=== PATIENT | male | born 1965 | race Caucasian/White ===

== ENCOUNTER → 2020-01-20 12:49 | Outpatient (CLI) | payer OTHER, SELFPAY ==
--- NOTE | ~2020-01-20 | XR_ITS ---
EXAMINATION: XR chest 2V EXAM DATE: 01/20/2020 13:19 INDICATION: Mid chest pain. TECHNIQUE: Frontal and lateral projections of the chest obtained and reviewed. Comparison is made to prior examination from 05/03/2015. FINDINGS: The lungs are clear. There are no pleural effusions. The cardiomediastinal silhouette is within normal limits. There is no pneumothorax suspected. The bones and soft tissues are unremarkab le. IMPRESSION: No acute cardiopulmonary findings. Reviewed, dictated and finalized at location A. CISE SCIENCE INSTRUCTOR
== END ==
PROVIDERS: PCP Family Medicine; Visit Provider Family Medicine
DX: R07.9 Chest pain, unspecified (principal)
CPT/HCPCS: 71046

== ENCOUNTER 2020-01-26 17:58 | Emergency (ER) | payer OTHER, SELFPAY ==
--- NOTE | ~2020-01-26 | XR_ITS ---
EXAMINATION: XR chest 2V DATE: 01/26/2020 18:31 INDICATION: Left-sided chest pain TECHNIQUE: PA and lateral views of the chest were obtained. COMPARISON: Chest radiograph dated 01/20/2020 FINDINGS: The lungs remain clear with no focal airspace opacities, pulmonary edema, pleural effusion or pneumot horax. The cardiomediastinal silhouette is normal with left paracardial fat pad. Mild thoracic spondy losis. IMPRESSION: 1. No acute cardiopulmonary disease. Reviewed, dictated and finalized at location A. RCEMENT MANAGER
[2020-01-26 18:04] VITALS: BP 174/100; PULSE 91; RESP 18; TEMP 37.6; O2SAT 95
--- NOTE | 2020-01-26 18:08 | ECG_ITS ---
Measurements Intervals [place] Rate: 87 P: 41 MO: 159 QRS: 12 QRSD: 106 T: 34 QT: 358 QTc: 431 Interpretive Statements SINUS RHYTHM MINIMAL Q WAVES- LATERAL LEADS BASELINE ARTIFACT- I, II, III, AVL, AVF BORDERLINE ECG Electronically Signed On 01-27-2020 7:01:13 WATER RESOURCE AGENT by Jorge Yang D.O.
[2020-01-26 18:09] VITALS: BP 174/100; PULSE 89; RESP 12; O2SAT 95
[2020-01-26 18:17] LABS: Basophils Absolute Auto 0.1 K/mm3 (0.0-0.1); Basophils Percent Auto 0.7 % (0.2-1.2); Eosinophils Absolute Auto 0.3 K/mm3 (0-0.3); Eosinophils Percent Auto 2.9 % (0-4.4); Hemoglobin 14.6 g/dL (14.0-18.0); Immature Granulocyte Absolute 0.02 K/mm3 (0.00-0.031); Immature Granulocyte Percent A 0.2 % (0-0.5); Lymphocytes Percent Auto 40.3 % (18.3-44.2); Mean Corpuscular Hemoglobin 30.4 pg (26-34); Mean Corpuscular Volume 89.6 fl (80-100); Mean Platelet Volume 10.5 fl (7.4-10.4); Monocytes Absolute Auto 0.8 K/mm3 (0.1-0.6); Monocytes Percent Auto 8.4 % (2.6-8.5); Neutrophils Absolute Auto 4.4 K/mm3 (1.3-6.7); Neutrophils Percent Auto 47.5 % (45.5-73.1); Platelet Count Result 222 k/mm3 (150-375); Red Cell Distribution Width 12.6 % (11.5-14.5); White Blood Count 9.2 K/mm3 (4.5-10.0)
[2020-01-26 18:29] LABS: Blood Urea Nitrogen 18 mg/dL (9-20); Calcium 9.5 mg/dL (8.4-10.2); Carbon Dioxide 25 mmol/L (22-30); Chloride 103 mmol/L (98-107); Estimated Glomerular Filt Rate > 60; Glucose 126 mg/dL (75-110); Potassium 4.2 mmol/L (3.4-5.0); Sodium 140 mmol/L (137-145)
[2020-01-26 18:31] LABS: Partial Thromboplastin Time 26.6 SECONDS (22.3-36.8); Prothrombin Time 12.8 Seconds (11.1-14.7)
[2020-01-26] MEDS: ASPIRIN 81 MG CHEWABLE TABLET 324 MG PO (18:32)
[2020-01-26 18:41] LABS: Troponin I < 0.012 ng/mL (0.000-0.034)
--- NOTE | 2020-01-26 19:14 | ED.CHESTPAIN ---
HPI - Chest Pain General Chief Complaint: Chest Pain <NOLAN Ragland Last Filed: 01/26/20 20:31> Stated Complaint: chest pain <NOLAN Ragland Last Filed: 01/26/20 20:31> Time Seen by Provider: 01/26/20 18:41 <NOLAN Ragland Last Filed: 01/26/20 20:31> Source: patient <NOLAN Ragland Last Filed: 01/26/20 20:31> Mode of arrival: ambulatory <NOLAN Ragland Last Filed: 01/26/20 20:31> Limitations: no limitations <NOLAN Ragland Last Filed: 01/26/20 20:31> History of Present Illness HPI narrative: Patient is a 54-year-old male who presents to emergency department for evaluation of chest pain localized to the left chest that today was radiating across the chest lasted 1/2-hour and improved patient has been having these pains for over 2 weeks now that the pain typically is present throughout the day patient saw his primary care for this and is scheduled to see cardiology. Patient denies any fever chills nausea vomiting and on arrival to emergency department notes 2 out of 10 pain was given 4 baby aspirin on arrival which she believes may have helped patient notes that nothing makes the pain better or worse and sometimes the pain increases and decreases for unknown reasons. Patient on arrival again in the room in no distress <Darius Pierson PA-C - Last Filed: 01/26/20 20:31> Related Data Allergies/Adverse Reactions: Allergies Allergy/AdvReac Type Severity Reaction Status Date / Time tetracycline Allergy Intermediate HIVES Verified 01/14/18 16:13 <NOLAN Ragland Last Filed: 01/26/20 20:31> Review of Systems Review of Systems: All systems reviewed & are unremarkable except as noted in HPI and below <NOLAN Ragland Last Filed: 01/26/20 20:31> [facility] Past Medical History Medical History: Medical History (Updated 01/27/20 @ 00:00 by Joan Brady) Obesity <NOLAN Ragland Last Filed: 01/26/20 20:31> Surgical History Surgical History: Surgical History (Updated 01/26/20 @ 19:17 by Darius Pierson PA-C) H/O removal of cyst <Darius Pierson PA-C - Last Filed: 01/26/20 20:31> Exam Narrative: Exam Narrative: GENERAL: Well-appearing, obese, and in no acute distress. HEAD: Normocephalic, atraumatic. EYES: PERRLA and EOMI. ENT: Nares clear, no rhinorrhea or epistaxis. Mucous membranes moist. Oropharynx without tonsillar hypertrophy exudate or other lesions. NECK: Supple. No adenopathy or masses. CHEST: Clear to auscultation. No respiratory distress. No wheezes rales or rhonchi HEART: Regular rate and rhythm. No murmur heard. Normal peripheral pulses. ABDOMEN: Soft, nontender, nondistended EXTREMITIES: Normal range of motion. No edema. SKIN: Warm, dry, no rash. NEURO: No focal deficits. Alert and oriented x3. Cranial nerves II through XII grossly intact PSYCH: Normal mood and affect. <Darius Pierson PA-C - Last Filed: 01/26/20 20:31> Course Course Emergency Course: Patient in the room in no distress aware of case findings treatment plan and diagnosis agreeing to follow-up as directed or to return if symptoms worsen or concerns <Darius Pierson PA-C - Last Filed: 01/26/20 20:31> Vital Signs Vital signs: Vital Signs Temperature 37.6 C H 01/26/20 18:04 Pulse Rate 91 01/26/20 18:04 Respiratory Rate 18 01/26/20 18:04 Blood Pressure 174/100 H 01/26/20 18:04 Pulse Oximetry 95 01/26/20 18:04 Temperature 37.6 C H 01/26/20 18:04 Pulse Rate 77 01/26/20 23:30 Respiratory Rate 20 01/26/20 23:30 Blood Pressure 120/75 01/26/20 23:30 Pulse Oximetry 94 01/26/20 23:30 <Darius Pierson PA-C - Last Filed: 01/26/20 20:31> Vital Signs Temperature 37.6 C H 01/26/20 18:04 Pulse Rate 91 01/26/20 18:04 Respiratory Rate 18 01/26/20 18:04 Blood Pressure 174/100 H 01/26/20 18:04 Pulse Oximetry 95 01/26/20 1
[2020-01-26 19:28] VITALS: BP 143/81; PULSE 77; RESP 15; O2SAT 96
[2020-01-26] MEDS: NITROGLYCERIN OINTMENT 1 INCH DOSE 0.5 INCH TRANSDERM (19:28)
[2020-01-26 20:00] VITALS: BP 147/86; PULSE 88; RESP 20; O2SAT 94
[2020-01-26 21:41] VITALS: BP 153/95; PULSE 87; RESP 22; O2SAT 96
[2020-01-26 21:49] LABS: Troponin I < 0.012 ng/mL (0.000-0.034)
[2020-01-26] MEDS: ACETAMINOPHEN 500 MG TABLET 1000 MG PO (23:29)
[2020-01-26 23:30] VITALS: BP 120/75; PULSE 77; RESP 20; O2SAT 94
== END 2020-01-26 23:30 | disposition home or self-care (01) ==
PROVIDERS: Emergency Medicine; Emergency Provider Emergency Medicine; PCP Family Medicine
DX: R07.9 Chest pain, unspecified (principal)
CPT/HCPCS: 36415; 71046; 80048; 84484; 85025; 85610; 85730; 93005; 99284; A9270

== ENCOUNTER 2020-10-08 02:01 | Outpatient (CLI) | payer OTHER, SELFPAY ==
[2020-10-08 18:04] LABS: SARS-CoV-2 RNA PCR Negative
== END 2020-10-08 02:02 | disposition home or self-care (01) ==
LOC: ANHCOVIDDT 02:01
PROVIDERS: PCP Family Medicine; Visit Provider Internal Medicine Critical Care Medicine
DX: Z01.818 Encounter for other preprocedural examination (principal); Z20.828 Contact with and (suspected) exposure to other viral communicable diseases
CPT/HCPCS: 87635; C9803; U0003

== ENCOUNTER 2020-12-27 10:10 | Outpatient (CLI) | payer OTHER, SELFPAY ==
--- NOTE | 2021-01-22 11:02 | WPDHOMESLEEP ---
Sleep Study - Home Unattended Date of Study: 12/27/20 Ordering Provider: Ellen Jasmine, CHIEF ACCOUNTANT; primary care is Dr Tamayo Interpreting Provider: Candice Mcdowell MD Home Sleep Study Type: Apnea Link Air Height: 1.85 m Weight: 133.81 kg Body Mass Index: 38.9 Neck Circumference (inches): 17 Drifting: [address] Petersen suspects sleep apnea, lower extremity edema, poor sleep basic sleep study on 05/18/2010 showed mild CRISTINA with AHI 5.3, snoring and periodic limb movements, and recommended a return to the sleep lab for CPAP. Sleep History Rick Nieto is a 55 year old man with frequent snoring this frequently loud enough that others complain about it. He occasionally awakens at night with heartburn, belching or coughing. He frequently awakens from sleep feeling short of breath. There is a family history of sleep disorders in his father and brother. The patient had a sleep study 10 years ago that did not show sleep apnea. He frequently has trouble sleeping with a cold. He frequently wakes up gasping for breath at night and frequently has breathing problems at night observed by others. He occasionally sweats excessively at night. He frequently notices his heart pounding or beating irregularly at night. He constantly falls asleep during the day, frequently involuntarily rarely while driving. He rarely falls asleep during physical effort. He does not have loss of muscle tone with strong emotion. 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 He occasionally feels paralyzed on waking or falling asleep. He occasionally has vivid dreamlike scenes upon awakening or falling asleep. He occasionally is afraid to go to sleep. He rarely has nightmares. He occasionally remembers his dreams. He constantly has racing thoughts. He occasionally feels sad or depressed. He constantly has anxiety about things, Rajeev has muscular tension. He frequently notices parts of his body jerking. He constantly kicks at night. He occasionally has crawling and aching feelings in his legs and rarely has leg pain during the night. He does not have morning jaw pain. He constantly grind his teeth during sleep. He occasionally has bothered by pain during the day. He rarely is awakened by pain at night. He frequently wakes up feeling stiff in the morning with sore achy muscles. He occasionally wakes up with pain in his neck and spine. He has fatigue, insomnia, concentration difficulties, and palpitations. Normal bedtime is 8:00 p.m. falling asleep within a 1/2 hour waking several times at night to get more comfortable. He stays awake on average 45 minutes with each of these episodes. He wakes up soon after falling asleep and in the middle of the night. He wakes for his day at 3:30 a.m. on 6 days out of the week. On the weekend, Saturday night he stays awake until 10:00 p.m. and on Saturday he wakes at 7:00 a.m.. he does not take naps. A short nap is not refreshing. He is usually drowsy in the morning for 3 hours or longer. He feels better in the evening compared other times of day. habits: Never smoked tobacco. No caffeine or alcohol. [facility] Past Medical History Medical History (Updated 01/22/21 @ 11:17 by Candice Mcdowell MD) Anxiety BMI 35.0-35.9,adult BMI 37.0-37.9, adult Chest pain Hyperlipidemia Lower extremity edema Obesity Surgical History Surgical History H/O removal of cyst Dr. Norris History of eye surgery Family History Family History Father Diabetes mellitus Gout Mother Heart disease Arteriosclerosis of bypass graft of coronary artery Ovarian cancer Sibling Diabetes mellitus Sleep apnea Social History Social History Smoking status: Never smoker Alcohol intake
[2021-01-22 11:05] VITALS: BMI 38.9
== END 2020-12-27 10:11 | disposition home or self-care (01) ==
LOC: ANHCSM 10:12
PROVIDERS: Family Provider Family Medicine; PCP Family Medicine; Visit Provider Nurse Practitioner Adult Health
DX: G47.33 Obstructive sleep apnea (adult) (pediatric) (principal)
CPT/HCPCS: 95806

== ENCOUNTER → 2021-02-07 02:56 | Outpatient (CLI) | payer OTHER, SELFPAY ==
[2021-02-07 22:47] LABS: SARS-CoV-2 RNA PCR Negative
== END ==
PROVIDERS: PCP Family Medicine; Visit Provider Internal Medicine Critical Care Medicine
DX: R68.89 Other general symptoms and signs (principal); Z20.822 Contact with and (suspected) exposure to COVID-19
CPT/HCPCS: C9803; U0003; U0005

== ENCOUNTER → 2021-03-10 00:52 | Outpatient (CLI) | payer OTHER, SELFPAY ==
[2021-03-10 19:49] LABS: SARS-CoV-2 RNA PCR Negative
== END ==
PROVIDERS: PCP Family Medicine; Visit Provider Internal Medicine Critical Care Medicine
DX: Z01.812 Encounter for preprocedural laboratory examination (principal); Z20.822 Contact with and (suspected) exposure to COVID-19
CPT/HCPCS: C9803; U0003; U0005

== ENCOUNTER 2021-03-13 09:47 | Outpatient (CLI) | payer OTHER, SELFPAY ==
--- NOTE | 2021-03-27 16:24 | WPDSLEEPSTUD ---
Sleep Study Date of Study: 03/13/21 Ordering Provider: Ellen Jasmine, DIRECTOR STRATEGIC PLANNING Interpreting Physician: Candice Mcdowell MD Sleep Study Type: CPAP Titration Height: 1.85 m Weight: 131.088 kg Body Mass Index: 38.1 Neck Circumference (inches): 19 [place]: 11 Reason for Sleep Study Home sleep test, ApneaLink on December 27, 2020 with severe obstructive sleep apnea, AHI 41.4, half the apneas were obstructive, half were central, desaturation to 84%, lower extremity edema; presents for CPAP titration. 05/18/2010 mild CRISTINA, AHI 5.3, snoring, periodic limb movements Sleep History Rick Nieto is a 55 year old man with snoring which is frequently loud enough that others complain about it. He occasionally awakens at night with heartburn, belching or coughing. He frequently awakens from sleep feeling short of breath. There is a family history of sleep disorders in his father and brother. The patient had a sleep study 10 years ago that did not show sleep apnea. He frequently has trouble sleeping with a cold. He frequently wakes up gasping for breath at night and frequently has breathing problems at night observed by others. He occasionally sweats excessively at night. He frequently notices his heart pounding or beating irregularly at night. He constantly falls asleep during the day, frequently involuntarily rarely while driving. He rarely falls asleep during physical effort. He does not have loss of muscle tone with strong emotion. 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 He occasionally feels paralyzed on waking or falling asleep. He occasionally has vivid dreamlike scenes upon awakening or falling asleep. He occasionally is afraid to go to sleep. He rarely has nightmares. He occasionally remembers his dreams. He constantly has racing thoughts. He occasionally feels sad or depressed. He constantly has anxiety about things, Rajeev has muscular tension. He frequently notices parts of his body jerking. He constantly kicks at night. He occasionally has crawling and aching feelings in his legs and rarely has leg pain during the night. He does not have morning jaw pain. He constantly grind his teeth during sleep. He occasionally has bothered by pain during the day. He rarely is awakened by pain at night. He frequently wakes up feeling stiff in the morning with sore achy muscles. He occasionally wakes up with pain in his neck and spine. He has fatigue, insomnia, concentration difficulties, and palpitations. Normal bedtime is 8:00 p.m. falling asleep within a 1/2 hour, waking several times at night to get more comfortable. He stays awake on average 45 minutes with each of these episodes. He wakes up soon after falling asleep and in the middle of the night. He wakes for his day at 3:30 a.m. 6 days out of the week. On the weekend, Saturday night he stays awake until 10:00 p.m. and on Saturday he wakes at 7:00 a.m.. He does not take naps. A short nap is not refreshing. He is usually drowsy in the morning for 3 hours or longer. He feels better in the evening compared other times of day. Habits: Never smoked tobacco. No caffeine or alcohol. [facility] Past Medical History Medical History (Updated 03/27/21 @ 16:27 by Candice Mcdowell MD) Anxiety BMI 35.0-35.9,adult BMI 37.0-37.9, adult Chest pain Hyperlipidemia Lower extremity edema Obesity Obstructive sleep apnea Surgical History Surgical History (System 01/25/21 @ 10:03 by Karla Santana) H/O removal of cyst Dr. Norris History of eye surgery Family History Family History Father Diabetes mellitus Gout Mother Heart disease Arteriosclerosis of bypass graft of coronary artery Ovarian cancer Sibling Diabetes mellitus Sleep apnea Social History Social History (System 01/25/21 @ 10:03 by Karla Santana) Smoking status:
[2021-03-27 16:25] VITALS: BMI 38.1
== END 2021-03-13 09:48 | disposition home or self-care (01) ==
LOC: ANHCSM 09:47
PROVIDERS: PCP Family Medicine; Visit Provider Nurse Practitioner Adult Health
DX: G47.33 Obstructive sleep apnea (adult) (pediatric) (principal)
CPT/HCPCS: 95811

== ENCOUNTER 2021-09-20 08:51 | Emergency (ER) | payer OTHER, SELFPAY ==
[2021-09-20 09:05] VITALS: BP 152/65; PULSE 62; RESP 16; TEMP 36.8; O2SAT 99
--- NOTE | 2021-09-20 09:21 | ED.GENADULT ---
HPI - General Adult General Chief complaint: Neck Pain/Injury Stated complaint: diaz/back of diaz pain/stiff neck Source: patient Mode of arrival: ambulatory Limitations: no limitations History of Present Illness HPI narrative: Patient is a 56-year-old male who presents to the [facility] via POV for evaluation of a work-related injury that occurred at 6:45 AM this morning. 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 Patient reports neck pain is stiff and tight in nature. He reports tenderness with all movement. No relief with 600 mg of Advil. Nothing improves or worsen symptoms. Headache is constant and achy in nature. Current pain level 7 out of 10 on a pain scale. Related Data Home Medications Medication Instructions Recorded Confirmed furosemide 40 mg tablet 40 mg PO QAM 11/21/20 09/20/21 garlic 1,000 mg capsule 1,000 mg PO DAILY 01/31/21 09/20/21 multivitamin 1 tablet PO DAILY 01/31/21 09/20/21 omega-3 fatty acids 1,000 mg 1,000 mg PO DAILY 01/31/21 09/20/21 capsule Allergies Allergy/AdvReac Type Severity Reaction Status Date / Time tetracycline Allergy Intermediate HIVES Verified 09/11/21 16:04 lisinopril AdvReac Intermediate Cough Verified 09/18/21 08:11 Review of Systems Review of Systems: Denies fever, chills, sweats, change in appetite, decreased range of motion, swelling, injury, jaw pain, vision problems, paresthesias, lymphadenopathy, loss of consciousness,weakness, incontinence, seizure activity, muscle cramps, spasms, difficulty thinking/remembering, difficulty with ambulation, abdominal pain, nausea, vomiting, diarrhea, constipation, chest pain, palpitations, cough, and shortness of breath PMFSH Past Medical History Medical History Adult BMI 39.0-39.9 kg/sq m Anxiety BMI 35.0-35.9,adult BMI 37.0-37.9, adult BMI 38.0-38.9,adult Chest pain Hyperlipidemia Lower extremity edema Obesity Obstructive sleep apnea Surgical History Surgical History H/O removal of cyst Dr. Norris History of eye surgery Family History Family History Father Diabetes mellitus Gout Mother Heart disease Arteriosclerosis of bypass graft of coronary artery Ovarian cancer Sibling Diabetes mellitus Sleep apnea Social History Social History Smoking status: Never smoker Second hand tobacco smoke exposure: Yes Alcohol intake: current Substance use: never Substance use type: does not use Additional occupation/education comments: [employer], [employer] Gender identity (if verbalized by the patient): Male Comments I have reviewed and agree with the patient's past medical, surgical, social, and family hx as documented by the RN. There is no relevant family history pertinent to the presenting complaint. Exam Narrative: GENERAL: Well-appearing, well-nourished, and in no acute distress. HEAD: Normocephalic, atraumatic. NECK: Supple. No lymphadenopathy or nuchal rigidity. Mild bilateral and posterior neck tenderness with all movement. no evidence of , decreased ROM or deformity. CHEST: Lung sounds are clear to auscultation in bilateral lung reyna. No respiratory distress. HEART: Regular rate and rhythm. No murmur heard. Normal peripheral pulses. ABDOMEN: Soft, nontender, nondistended, normal active bowel sounds in all quadrants. No guarding. No rebound tenderness. No pulsatile or palpable abdominal mass(es). No CVAT EXTREMITIES: Normal range of motion. No edema. Mild tenderness elicited to bilateral posterior shoulders with palpation. BACK: Full ROM. No evidence of deformity, spasm, mass, spinal tenderness, or s
[2021-09-20 09:30] VITALS: BP 135/77; PULSE 63; RESP 16; TEMP 36.8; O2SAT 100
== END 2021-09-20 09:47 | disposition home or self-care (01) ==
PROVIDERS: Emergency Provider Nurse Practitioner Family; PCP Family Medicine
DX: R51.9 Headache, unspecified (principal); E78.5 Hyperlipidemia, unspecified; G47.33 Obstructive sleep apnea (adult) (pediatric); E66.9 Obesity, unspecified; Z68.37 Body mass index [BMI] 37.0-37.9, adult
CPT/HCPCS: 99213; G0463

== ENCOUNTER → 2021-10-09 17:21 | Outpatient (CLI) | payer OTHER, SELFPAY ==
--- NOTE | ~2021-10-09 | XR_ITS ---
EXAMINATION: XR_[id number]_CR DATE: 10/09/2021 18:07 INDICATION: Neck pain. TECHNIQUE: 3 views of cervical spine standing were obtained. COMPARISON: None. FINDINGS: There is 12 degrees dextroscoliosis of cervical spine. There is mild kyphosis of lower cerv ical spine. Vertebral body heights are normal. There is mildly decreased disc height at C6-C7. There is multilevel mild facet joint osteoarthritis. There is mild central canal stenosis at C6-C7. No prev ertebral soft tissue swelling. IMPRESSION: 1. Mild cervical spondylosis. 2. Cervical dextroscoliosis. Reviewed, dictated and finalized at location A. ATRIC AIDE
== END ==
PROVIDERS: PCP Family Medicine; Visit Provider Nurse Practitioner Family
DX: M47.892 Other spondylosis, cervical region (principal)
CPT/HCPCS: 72040

== ENCOUNTER → 2022-02-10 08:23 | Outpatient (CLI) | payer OTHER, SELFPAY ==
--- NOTE | ~2022-02-10 | US_ITS ---
EXAMINATION: US abdomen limited DATE: 02/10/2022 08:44 INDICATION: Abnormal liver function tests. TECHNIQUE: Multiple grayscale and Doppler ultrasound images of the abdomen were obtained. COMPARISON: CT abdomen and pelvis 09/26/2017 FINDINGS: The visualized portions of the head and body of the pancreas are normal. There is diffuse h epatic steatosis. There is normal flow in main portal vein. The gallbladder is normal in size. There is a 5 mm polyp in the gallbladder, likely benign and needing no follow-up. No gallstones or gallblad dotty wall thickening. There was no sonographic Fernando sign. The common duct is normal and measures 4 m m. IMPRESSION: 1. Diffuse hepatic steatosis. Reviewed, dictated and finalized at location A. ING MACHINE OPERATOR
== END ==
PROVIDERS: Visit Provider Nurse Practitioner Family
DX: R74.8 Abnormal levels of other serum enzymes (principal); K76.0 Fatty (change of) liver, not elsewhere classified
CPT/HCPCS: 76705

== ENCOUNTER 2022-04-19 11:00 | Outpatient (RCR) | payer OTHER, SELFPAY ==
[2022-04-19 10:55] VITALS: BMI 37.9
[2022-04-19 11:00] VITALS: BMI 37.9
== END 2022-05-25 12:01 | disposition home or self-care (01) ==
LOC: ANHDMC 11:00
PROVIDERS: PCP Family Medicine; Visit Provider Family Medicine
DX: E11.9 Type 2 diabetes mellitus without complications (principal); Z71.3 Dietary counseling and surveillance; Z71.89 Other specified counseling
CPT/HCPCS: 97802; G0108

== ENCOUNTER 2022-11-02 01:02 | Day surgery (SDC) | payer OTHER, SELFPAY ==
[2022-10-18 15:38] VITALS: BMI 38.2
[2022-11-02 06:40] VITALS: BP 157/81; PULSE 83; RESP 20; TEMP 36.4; O2SAT 98
[2022-11-02] MEDS: LACTATED RINGERS 1,000 ML 150 ML IV CONT (06:55)
--- NOTE | 2022-11-02 07:24 | WPDANESEPPF ---
Anes - Initial Pre Proc Eval Procedure: Operation Date: 11/02/22 08:00 Proposed Procedures p Screening Colonoscopy - Edgar Doan MD Date/Time: 11/02/22 07:24 Surgeon: Edgar Doan MD Pre Op Diagnosis: neoplasm screening, hx of colon polyps Patient Data Age: 57 Gender: M Height: 1.85 m Weight: 136.6 kg Last Vital Signs Temp 36.4 C 11/02/22 06:40 Pulse 83 11/02/22 06:40 Resp 20 11/02/22 06:40 BP 157/81 H 11/02/22 06:40 Pulse Ox 98 11/02/22 06:40 O2 Del Method Room Air 11/02/22 06:40 Allergies Allergy/AdvReac Type Severity Reaction Status Date / Time lisinopril Allergy Intermediate Cough Verified 11/02/22 06:39 rosuvastatin [From Crestor] Allergy Intermediate Elevated CK Verified 11/02/22 06:39 tetracycline Allergy Intermediate HIVES Verified 11/02/22 06:39 Home Medications Medication Instructions Recorded Confirmed Type furosemide 40 mg tablet 40 mg PO QAM 11/21/20 10/18/22 History garlic 1,000 mg capsule 1,000 mg PO DAILY 01/31/21 10/18/22 History multivitamin (Daily Multi-Vitamin 1 tablet PO DAILY 01/31/21 10/18/22 History tablet) omega-3 fatty acids 1,000 mg 1,000 mg PO BID 01/31/21 10/18/22 History capsule (Fish Oil Concentrate) losartan 100 mg tablet 100 mg PO DAILY #90 tabs 11/09/21 10/18/22 Rx peg 3350-electrolytes 236 240 ml PO Q10M #4,000 mL 09/04/22 10/18/22 Rx gram-22.74 gram-6.74 gram-5.86 gram solution (Golytely) ezetimibe 10 mg tablet 10 mg PO DAILY #90 tabs 10/02/22 10/18/22 Rx Patient hx anesthesia problems: none Family hx anesthesia problems: none Results Review: All pre-operative results and documents have been reviewed as part of the pre-operative evaluation. [facility] Past Medical History Medical History Adult BMI 39.0-39.9 kg/sq m Anxiety BMI 35.0-35.9,adult BMI 37.0-37.9, adult BMI 38.0-38.9,adult Chest pain Hyperlipidemia Lower extremity edema Obesity Obstructive sleep apnea Surgical History Surgical History H/O removal of cyst Dr. 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 Informed Consent: The patient's anesthetic plan and its attendant risks and benefits were discussed with the patient/family/POA. Questions were solicited and answers provided to the satisfaction of the patient/family/POA.
--- NOTE | 2022-11-02 07:47 | PM.HPGS ---
History of Present Illness History of Present Illness Consent: Risks, benefits, and alternatives have been discussed and questions answered. Patient agrees to proceed with procedure. Chief complaint: neoplasm screening, hx of colon polyps Narrative: Rick Nieto Jr. is a 57 year old male Presents for screening colonoscopy. Patient reports his current weight appetite and bowel movements are normal. He denies abdominal pain. Patient has had no bleeding. Family history noncontributory. Patient does note that his has had colon polyps. Patient's most recent colonoscopy 2016 revealed adenomatous colon polyp. In the past he has had an esophageal web but has no difficulty swallowing at present. Review of Systems Review of Systems: Review of systems noncontributory. [facility] Past Medical History Medical History Adult BMI 39.0-39.9 kg/sq m Anxiety BMI 35.0-35.9,adult BMI 37.0-37.9, adult BMI 38.0-38.9,adult Chest pain Hyperlipidemia Lower extremity edema Obesity Obstructive sleep apnea Surgical History Surgical History H/O removal of cyst Dr. Norris History of eye surgery Family History Family History Father Diabetes mellitus Gout Hypertension Mother Heart disease Arteriosclerosis of bypass graft of coronary artery Ovarian cancer Hypertension Sibling Diabetes mellitus Sleep apnea Social History Social History Smoking status: Never smoker Second hand tobacco smoke exposure: Yes Alcohol intake: never Substance use: never Substance use type: does not use Living arrangements: with family Additional occupation/education comments: S[employer]- [employer] Gender identity (if verbalized by the patient): Male Spiritual care concerns: No Meds Home Medications and Allergies Home Medications Medication Instructions Recorded Confirmed Type furosemide 40 mg tablet 40 mg PO QAM 11/21/20 10/18/22 History garlic 1,000 mg capsule 1,000 mg PO DAILY 01/31/21 10/18/22 History multivitamin (Daily Multi-Vitamin 1 tablet PO DAILY 01/31/21 10/18/22 History tablet) omega-3 fatty acids 1,000 mg 1,000 mg PO BID 01/31/21 10/18/22 History capsule (Fish Oil Concentrate) losartan 100 mg tablet 100 mg PO DAILY #90 tabs 11/09/21 10/18/22 Rx peg 3350-electrolytes 236 240 ml PO Q10M #4,000 mL 09/04/22 10/18/22 Rx gram-22.74 gram-6.74 gram-5.86 gram solution (Golytely) ezetimibe 10 mg tablet 10 mg PO DAILY #90 tabs 10/02/22 10/18/22 Rx Allergies Allergy/AdvReac Type Severity Reaction Status Date / Time lisinopril Allergy Intermediate Cough Verified 11/02/22 06:39 rosuvastatin [From Crestor] Allergy Intermediate Elevated CK Verified 11/02/22 06:39 tetracycline Allergy Intermediate HIVES Verified 11/02/22 06:39 Vital Signs Vital Signs - 24 hr 11/02/22 06:40 Temperature 97.6 F Pulse Rate 83 Respiratory Rate 20 Blood Pressure 157/81 H Pulse Oximetry 98 Oxygen Delivery Room Air Exam Narrative: Physical exam reveals patient to be alert. Vital signs stable. HEENT exam is unremarkable. Patient is anicteric. Lungs are clear to auscultation and percussion. Heart is without murmur or extra sounds. Abdomen bowel sounds present soft nontender with no organomegaly. Digital external rectal exam is normal. Assessment and Plan Assessment and plan (1) History of colon polyps: Code(s): Z86.010 - Personal history of colonic polyps Status: Acute Assessment and Plan: Patient has a history of colon polyps. Plan for surveillance colonoscopy now. Because of this history follow-up is anticipated 5 year intervals. Further recommendations may be given after endoscopy.
[2022-11-02 08:26] VITALS: BP 127/72; PULSE 74; RESP 17; O2SAT 98
[2022-11-02 08:36] VITALS: BP 130/73; PULSE 71; RESP 17; O2SAT 96
[2022-11-02 08:46] VITALS: BP 129/72; PULSE 65; RESP 19; O2SAT 97
== END 2022-11-02 08:56 | disposition home or self-care (01) ==
PROVIDERS: PCP Family Medicine; Visit Provider Internal Medicine Gastroenterology
PROC: 0DJD8ZZ Inspection of Lower Intestinal Tract, Via Natural or Artificial Opening Endoscopic (ICD-10-PCS; CPT 45378; principal; 2022-11-02 08:00)
DX: Z12.11 Encounter for screening for malignant neoplasm of colon (principal); D12.2 Benign neoplasm of ascending colon; K64.8 Other hemorrhoids; E78.5 Hyperlipidemia, unspecified; G47.33 Obstructive sleep apnea (adult) (pediatric); E66.9 Obesity, unspecified; Z68.39 Body mass index [BMI] 39.0-39.9, adult
CPT/HCPCS: 45385; 88305; J2704; J7120

== ENCOUNTER → 2022-11-12 16:55 | Outpatient (CLI) | payer OTHER, SELFPAY ==
--- NOTE | ~2022-11-12 | XR_ITS ---
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 RESULT: Lines, tubes, and devices: None. Lungs and pleura: Clear. Cardiomediastinal silhouette: Stable. Other: No acute osseous or upper abdominal finding. IMPRESSION: No acute cardiopulmonary process. Reviewed, dictated and finalized at location K. ER HELPER
== END ==
PROVIDERS: PCP Nurse Practitioner Family; Visit Provider Nurse Practitioner Family
DX: R05.9 Cough, unspecified (principal)
CPT/HCPCS: 71046

== ENCOUNTER 2023-05-29 20:08 | Observation (INO) | payer OTHER, SELFPAY ==
[2023-05-29] VITALS (10 sets, daily range): BP systolic 132–162; BP diastolic 66–81; PULSE 64–80; RESP 11–21; TEMP 36.6–36.7; O2SAT 93–97
--- NOTE | ~2023-05-29 | MR_ITS ---
MRI of the brain Clinical History: Left hand numbness Technique: Axial and sagittal T1-weighted images were acquired. These were followed by axial T2-weigh irvin, diffusion weighted, gradient, and FLAIR images. Findings: No abnormal signal seen in the brain parenchyma. No acute infarct, intracranial hemorrhage, or mass lesion. Ventricles and subarachnoid spaces are unremarkable. Orbits are unremarkable. Paranasal sinuses and m astoid air cells are clear. Major intracranial flow voids are intact. Sagittal midline structures are intact. IMPRESSION: Unremarkable exam. Reviewed, dictated and finalized at location M. IMPRESSION: Unremarkable exam.
--- NOTE | ~2023-05-29 | US_ITS ---
EXAMINATION: US carotid duplex BI DATE: 05/30/2023 08:15 INDICATION: Disturbance of skin sensation with hand numbness TECHNIQUE: Grayscale, color Doppler, and pulsed Doppler images of the cervical carotid arteries were obtained. The degree of vessel stenosis is placed in one of the following categories: normal, <50%, 5 0-69%, >=70% but less than near-occlusion, near-occlusion, or total occlusion. Note that percent sten osis relative to normal distal artery lumen diameter is indirectly measured from velocity measurement s as described by Steve, et al. Radiology 2003; 229:340-346. COMPARISON: None. FINDINGS: RIGHT: The right common carotid artery (CCA) peak systolic velocity (PSV) is 126 cm/s. The right internal ca rotid artery (ICA) PSV is 102 cm/s. The right ICA end-diastolic velocity (EDV) is 22 cm/s. The right ICA/CCA PSV ratio is 0.8. Grayscale and color Doppler images yield an estimate of <50% diameter reduc tion from minutes plaque in the ICA. The external carotid artery (ECA) PSV is 144 cm/s. There is ante grade flow in the right vertebral artery. LEFT: The left CCA PSV is 141 cm/s. The left ICA PSV is 70 cm/s. The left ICA EDV is 24 cm/s. The left ICA/ CCA PSV ratio is 0.5. Grayscale and color Doppler images yield an estimate of <50% diameter reduction from from minimal plaque in the ICA. The ECA PSV is 120 cm/s. There is antegrade flow in the left ve rtebral artery. IMPRESSION: 1. <50% stenosis from minimal plaque in the right internal carotid artery. 2. <50% stenosis from minimal plaque in the left internal carotid artery. Reviewed, dictated and finalized at location A.
--- NOTE | ~2023-05-29 | CT_ITS ---
EXAMINATION: CTA chest abdomen pelvis DATE: 05/29/2023 22:00 INDICATION: dissection . TECHNIQUE: Computed tomography (CT) of the chest, abdomen, and pelvis was performed with 100 mL Omnip aque-350 intravenous contrast. Automated exposure control and iterative reconstruction technique were employed. The dose-length product was 2048.34 mGy-cm. COMPARISON: CT abdomen pelvis 09/26/2017. FINDINGS: CHEST: Thoracic aorta: No dilation or calcification. No dissection. Lung parenchyma and airways: Minimal bibasilar scar/atelectasis. Scattered calcified granulomas. Thoracic inlet, axillae and chest wall: No thyroid or soft tissue mass. No axillary lymphadenopathy. Mediastinum: No mass or lymphadenopathy. Heart and pericardium: Normal heart size. No pericardial effusion. Coronary artery calcifications: Mild. Pleura: No effusion or mass. Thoracic bones: No acute osseous finding in the chest. ABDOMEN/PELVIS: Liver: Mildly enlarged. Hepatic steatosis. Biliary/Gallbladder: Gallbladder is normal. No bile duct dilation. Pancreas: No mass or duct dilation. Spleen: Normal. Adrenals:No mass. Kidneys: 13 mm slightly hyperdense right upper pole lesion, previously determined to be a hemorrhagic or proteinaceous cyst. No suspicious mass, stone, or hydronephrosis. GI tract: No small or large bowel dilation. Normal appendix. Diverticulosis without diverticulitis. Mesentery/Peritoneum: No ascites, mass, or free air. Retroperitoneum: No mass. Normal abdominal aorta and branch vessels. Normal iliac arteries. Pelvis: Mild bladder wall thickening likely due to outlet compromise. Prostatomegaly with calcificati ons. Soft Tissues: Soft tissues and body wall unremarkable. Abdominopelvic bones: No acute osseous finding in the abdomen/pelvis. IMPRESSION: No acute process detected in the chest, abdomen, or pelvis. Chronic and incidental findings are detai led above. Reviewed, dictated and finalized at location K. IMPRESSION: No acute process detected in the chest, abdomen, or pelvis. Chronic and inciden flor findings are detailed above.
--- NOTE | ~2023-05-29 | XR_ITS ---
EXAMINATION: XR chest 2V Exam Date/Time: 05/29/2023 20:24 CDT HISTORY: cp AND TINGLING IN LEFT ARM Comparison: 11/12/2022. RESULT: Lines, tubes, and devices: None. Lungs and pleura: Clear. Cardiomediastinal silhouette: Stable. Other: No acute osseous or upper abdominal finding. IMPRESSION: No acute cardiopulmonary process. Reviewed, dictated and finalized at location K.
--- NOTE | ~2023-05-29 | CT_ITS ---
EXAMINATION: CT brain wo con DATE: 05/29/2023 21:30 INDICATION: numbness L hand . TECHNIQUE: Computed tomography (CT) of the head was performed without intravenous contrast. The mA wa s adjusted according to patient size. Iterative reconstruction technique was employed. The dose-lengt h product was 605.33 mGy-cm. COMPARISON: 08/19/2019. FINDINGS: No acute intracranial hemorrhage or extra-axial fluid collection. No hydrocephalus, mass, or herniation. No acute ischemic infarct. Unremarkable dural venous sinus attenuation. No acute osseous abnormality. The aerated spaces are clear. Mild chronic white matter change. Bilateral lens replacements. IMPRESSION: No acute intracranial process. Reviewed, dictated and finalized at location K.
--- NOTE | 2023-05-29 20:12 | ECG_ITS ---
Measurements Intervals Enders Rate: 71 P: 34 PA: 165 QRS: 9 QRSD: 97 T: 30 QT: 369 QTc: 403 Interpretive Statements SINUS RHYTHM COMPARED TO ECG 01/26/2020 18:07:09 NO SIGNIFICANT CHANGES Electronically Signed On 05-30-2023 11:41:28 CDT by Irene Terrell M.D.
[2023-05-29 20:24] LABS: Glucose Point of Care 100 mg/dl (65-105)
[2023-05-29 21:11] LABS: Basophils Absolute Auto 0.1 K/mm3 (0.0-0.1); Basophils Percent Auto 0.6 % (0.2-1.2); Eosinophils Absolute Auto 0.4 K/mm3 (0-0.3); Eosinophils Percent Auto 4.5 % (0-4.4); Hematocrit 40.9 % (42.0-52.0); Hemoglobin 13.5 g/dL (14.0-18.0); Immature Granulocyte Absolute 0.02 K/mm3 (0.00-0.031); Immature Granulocyte Percent A 0.2 % (0-0.5); Lymphocytes Absolute Auto 3.73 K/mm3 (0.9-3.2); Lymphocytes Percent Auto 39.4 % (18.3-44.2); Mean Corpuscular Hemoglobin 30.7 pg (26-34); Mean Platelet Volume 10.6 fl (7.4-10.4); Monocytes Percent Auto 10.1 % (2.6-8.5); Neutrophils Absolute Auto 4.3 K/mm3 (1.3-6.7); Neutrophils Percent Auto 45.2 % (45.5-73.1); Platelet Count Result 191 k/mm3 (150-375); Red Cell Distribution Width 12.9 % (11.5-14.5); White Blood Count 9.5 K/mm3 (4.5-10.0)
--- NOTE | 2023-05-29 21:18 | ED.GENADULT ---
HPI - General Adult General Chief complaint: Neuro Symptoms/Deficit <Kaycee Catalan PA-C - Last Filed: 05/30/23 03:25> Stated complaint: left hand tingling/numbness <Kaycee Catalan PA-C - Last Filed: 05/30/23 03:25> Time Seen by Provider: 05/29/23 20:58 <Kaycee Catalan PA-C - Last Filed: 05/30/23 03:25> History of Present Illness HPI narrative: 58 y/o M with history of type 2 diabetes, hypertension, hyperlipidemia, CRISTINA reports for evaluation of sudden onset numbness and tingling to the left thumb that has since spread to the entirety of the L hand. Patient states the numbness and tingling occurred while he was on a walk with his family. He also reports intermittent double pains in his left anterior chest since the onset of symptoms. He states the dull pain comes on for a few seconds and then subsides. States it is happened approximately 5 times in the past 3 hours. He does have bilateral pitting edema which she states is unchanged from baseline. Denies shortness of breath, cough or congestion, fever, neck pain or back pain, headache or vision changes, focal numbness or weakness. He denies difficulty talking or walking, loss of bowel or bladder control or retention. 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 He denies history of carpal tunnel, ulnar nerve entrapment or cervical radiculopathy. <Kaycee Catalan PA-C - Last Filed: 05/30/23 03:25> Related Data Home medications: Home Medications Medication Instructions Recorded Confirmed furosemide 40 mg tablet 40 mg PO QAM 11/21/20 05/30/23 multivitamin (Daily Multi-Vitamin 1 tablet PO DAILY 01/31/21 05/30/23 tablet) omega-3 fatty acids 1,000 mg 1,000 mg PO BID 01/31/21 05/30/23 capsule (Fish Oil Concentrate) ascorbic acid (vitamin C) 1,000 mg 1 g PO DAILY 03/20/23 05/30/23 capsule zinc acetate 50 mg (zinc) capsule 50 mg PO DAILY 03/20/23 05/30/23 ezetimibe 10 mg tablet 10 mg PO QPM 05/30/23 05/30/23 losartan 100 mg tablet 100 mg PO QPM 05/30/23 05/30/23 metformin 500 mg tablet,extended 2,000 mg PO QPM 05/30/23 05/30/23 release 24 hr <Kaycee Catalan PA-C - Last Filed: 05/30/23 03:25> Allergies/adverse reactions: Allergies Allergy/AdvReac Type Severity Reaction Status Date / Time lisinopril Allergy Intermediate Cough Verified 03/20/23 15:39 rosuvastatin [From Crestor] Allergy Intermediate Elevated CK Verified 03/20/23 15:39 tetracycline Allergy Intermediate HIVES Verified 03/20/23 15:39 semaglutide [From Ozempic] AdvReac Mild Nausea Verified 03/21/23 08:30 <Kaycee Catalan PA-C - Last Filed: 05/30/23 03:25> Review of Systems Review of Systems: CONSTITUTIONAL: Denies fever, chills EYES: Denies visual changes, redness, or discharge. ENT: Denies rhinorrhea, congestion, sore throat, or otalgia. CARDIOVASCULAR: See HPI RESPIRATORY: Denies cough or dyspnea. GASTROINTESTINAL: Denies abdominal pain, nausea, vomiting, or diarrhea. GENITOURINARY: Denies dysuria or hematuria. SKIN: Denies rash or itching. MUSCULOSKELETAL: See HPI NEUROLOGIC: Denies headache, numbness, dizziness, or weakness. PSYCHIATRIC: Denies anxiety or depression. <Kaycee Catalan PA-C - Last Filed: 05/30/23 03:25> [facility] Past Medical History Medical History: Medical History Adult BMI 39.0-39.9 kg/sq m Anxiety BMI 35.0-35.9,adult BMI 37.0-37.9, adult BMI 38.0-38.9,adult Chest pain Hyperlipidemia Lower extremity edema Obesity Obstructive sleep apnea <Kaycee Catalan PA-C - Last Filed: 05/30/23 03:25> Surgical History Surgical History: Surgical History H/O colonoscopy H/O removal of cyst Dr. Norris History of eye surgery <Kaycee Catalan PA-C - Last Filed: 05/30/23 03:25> Family History Family History: Family History (Reviewed 05/29/23
[2023-05-29 21:21] LABS: Alanine Aminotransferase 111 U/L (6-50); Albumin Level 4.8 g/dL (3.5-5.1); Alkaline Phosphatase 120 U/L (38-126); Anion Gap 6 mmol/L (8-16); Aspartate Amino Transferase 72 U/L (17-59); Bilirubin,Total 0.4 mg/dL (0.2-1.3); Blood Urea Nitrogen 19 mg/dL (9-20); Calcium 10.1 mg/dL (8.4-10.2); Carbon Dioxide 31 mmol/L (22-30); Chloride 104 mmol/L (98-107); Estimated CRCL calculation 101 ml/min; Estimated Glomerular Filt Rate > 60; Glucose 90 mg/dL (65-110); Lipase 158 U/L (23-300); Potassium 4.3 mmol/L (3.4-5.0); Sodium 141 mmol/L (137-145)
[2023-05-29 21:23] LABS: Partial Thromboplastin Time 28.2 SECONDS (22.3-36.8)
[2023-05-29 21:33] LABS: Troponin I < 0.012 ng/mL (0.000-0.034)
[2023-05-29 21:49] LABS: NT Pro B Type Natriuretic Pept < 20 pg/mL (19.9-100)
[2023-05-29 23:38] LABS: Troponin I < 0.012 ng/mL (0.000-0.034)
[2023-05-30] VITALS (10 sets, daily range): BP systolic 124–170; BP diastolic 58–82; PULSE 64–77; RESP 16–26; TEMP 36.3–36.9; O2SAT 96–100; BMI 39.7
--- NOTE | 2023-05-30 | ECHO_ITS ---
Patient Info Name: Rick Nieto Age: 58 years : 1965 Gender: Male Ht: 71 in Wt: 295 lbs BSA: 2.65 m2 HR: 77 bpm BP: 126 / 67 mmHg Heart Rhythm: Sinus Rhythm Technical Quality: Good Exam Date: 05/30/2023 11:23 AM Exam Location: [facility] Patient Status: Inpatient Admit Date: 05/30/2023 Staff Ordering Physician: Pedro Luis Ruelas MD Hebrew Cantor: Luisa Cabral RDCS Attending Provider: Pedro Luis Ruelas MD Referring Physician: Jessenia WORTHY; Exam Type: CA echo doppler color flow Study Info Indications - hand numbness Complete two-dimensional, color flow and Doppler transthoracic echocardiogram is performed. Summary 1. Complete two-dimensional, color flow and Doppler transthoracic echocardiogram is performed. 2. Left ventricular chamber dimension is normal. 3. Left ventricular systolic function is normal, estimated at 55-60%. 4. There is mildly increased left ventricular wall thickness. 5. The left ventricular diastolic function is grade I diastolic dysfunction. 6. Right ventricular systolic function is normal. 7. No significant valvular disease. Left Ventricle Left ventricular chamber dimension is normal. Left ventricular systolic function is normal, estimated at 55-60%. There is mildly increased left ventricular wall thickness. The left ventricular diastolic function is grade I diastolic dysfunction. Right Ventricle Right ventricular chamber dimension is normal. Right ventricular systolic function is normal. Left Atria Left atrial chamber dimension is normal. Right Atria Right atrial chamber dimension is normal. Atrial Septum Intact interatrial septum visualized by color flow imaging. Aortic Valve The aortic valve is trileaflet. There is mild aortic valve sclerosis. There is no aortic valve regurgitation. Pulmonic Valve The pulmonic valve is not well visualized. Mitral Valve There is trace mitral valve regurgitation. Tricuspid Valve There is trace tricuspid valve regurgitation. Pericardium/Pleural The pericardium appears epicardial fat pad. There is no pericardial effusion. Inferior Vena Cava Normal inferior vena cava with >50% collapse upon inspiration consistent with normal right atrial pressure, 3 mmHg. Aorta The aortic root size at the sinus of Valsalva is normal. Left Ventricular Outflow Tract Name Value Normal LVOT 2D LVOT Diameter 2.2 cm LVOT Doppler LVOT Peak Gradient 3 mmHg LVOT Mean Gradient 1 mmHg LVOT VTI 18 cm LVOT VTI/AV VTI Ratio 0.8 LVOT Stroke Volume 69 ml LVOT CO 4.2 l/min LVOT CI 1.7 l/min/m2 Pulmonic Valve Name Value Normal RVOT Doppler RVOT Peak Gradient 1 mmHg PV Doppler
--- NOTE | 2023-05-30 00:39 | PM.IMHP ---
H&P: HPI History of Present Illness Date/Time: 05/30/23 00:39 Chief Complaint: Hand numbness Narrative: 58-year-old male with past medical history significant for type diabetes mellitus, obesity. Patient presents to the emergency room after sudden onset of left hand numbness, tingling, no loss of strength, no as patient disturbance, no vision disturbance, no gait disturbance, no fevers, no rigors, no chills, patient has been in his usual state of health up until this moment. Preliminary workup essentially nonrevealing. Patient placed in observation for further evaluation management and treatment. EXAMINATION:? XR chest 2V Exam Date/Time:? 05/29/2023 20:24 CDT HISTORY: cp AND TINGLING IN LEFT ARM ? Comparison:? 11/12/2022. RESULT: Lines, tubes, and devices:? None. Lungs and pleura:? Clear. Cardiomediastinal silhouette:? Stable. Other:? No acute osseous or upper abdominal finding. ? IMPRESSION: No acute cardiopulmonary process. EXAMINATION: CT brain wo con DATE: 05/29/2023 21:30 INDICATION: numbness L hand . TECHNIQUE: Computed tomography (CT) of the head was performed without intravenous contrast. The mA was adjusted according to patient size. Iterative reconstruction technique was employed. The dose-length product was 605.33 mGy-cm. COMPARISON: 08/19/2019. FINDINGS: No acute intracranial hemorrhage or extra-axial fluid collection. No hydrocephalus, mass, or herniation. No acute ischemic infarct. Unremarkable dural venous sinus attenuation. No acute osseous abnormality. The? aerated spaces are clear. Mild chronic white matter change. Bilateral lens replacements. IMPRESSION:? No acute intracranial process. EXAMINATION: CTA chest abdomen pelvis DATE: 05/29/2023 22:00 INDICATION: dissection . TECHNIQUE: Computed tomography (CT) of the chest, abdomen, and pelvis was performed with 100 mL Omnipaque-350 intravenous contrast. Automated exposure control and iterative reconstruction technique were employed. The dose-length product was 2048.34 mGy-cm. COMPARISON: CT abdomen pelvis 09/26/2017. FINDINGS: CHEST: Thoracic aorta: No dilation or calcification. No dissection. Lung parenchyma and airways: Minimal bibasilar scar/atelectasis. Scattered calcified granulomas. Thoracic inlet, axillae and chest wall: No thyroid or soft tissue mass. No axillary lymphadenopathy. Mediastinum: No mass or lymphadenopathy. Heart and pericardium: Normal heart size. No pericardial effusion. Coronary artery calcifications: Mild. Pleura: No effusion or mass. Thoracic bones: No acute osseous finding in the chest. ABDOMEN/PELVIS: Liver: Mildly enlarged. Hepatic steatosis.? Biliary/Gallbladder: Gallbladder is normal. No bile duct dilation. Pancreas: No mass or duct dilation. Spleen: Normal. Adrenals:No mass. Kidneys: 13 mm slightly hyperdense right upper pole lesion, previously determined to be a hemorrhagic or proteinaceous cyst. No suspicious mass, stone, or hydronephrosis. GI tract: No small or large bowel dilation. Normal appendix. Diverticulosis without diverticulitis. Mesentery/Peritoneum: No ascites, mass, or free air. Retroperitoneum: No mass. Normal abdominal aorta and branch vessels. Normal iliac arteries. Pelvis: Mild bladder wall thickening likely due to outlet compromise. Prostatomegaly with calcifications. Soft Tissues: Soft tissues and body wall unremarkable. Abdominopelvic bones:? No acute osseous finding in the abdomen/pelvis. IMPRESSION: No acute process detected in the chest, abdomen, or pelvis. Chronic and incidental findings are detailed above. Review of Systems Review of Systems: Left hand numbness and tingling Constitutional: Constitutional: Denies chills, Denies fatigue, Denies fever(s), Denies malaise, Denies night sweats and Denies weakness Eyes: Eyes: Denies change in vision ENT: Denies dysphagia and Denies odynophagia Cardiovascular: Cardiovascular: Denies chest pa
--- NOTE | 2023-05-30 02:27 | ADMGEN ---
This patient, Rick Nieto Jr., was admitted to Medical Room 251-01. Patient/family oriented to hospital policies and general routines including ID bracelet, bed and alarms, visiting hours, pain management, procedures, bathroom and other care routines, personal items, smoking policy, room service/diet, and visiting hours. Information on how to activate the Rapid Response Team has been discussed. Patient/Family are encouraged to report perceived risks to care and to ask questions if they do not understand what they are told or what they should do.
[2023-05-30 03:16] LABS: Troponin I < 0.012 ng/mL (0.000-0.034)
[2023-05-30 08:30] LABS: Glucose Point of Care 132 mg/dl (65-105)
[2023-05-30] MEDS: ASCORBIC ACID 500 MG TABLET 1000 MG PO (08:59)
[2023-05-30] MEDS: ZINC SULFATE 220 MG CAPSULE PO (08:59)
[2023-05-30] MEDS: MULTIVITAMINS THERAPEUTIC TAB (*BKC) 1 TABLET PO (08:59)
[2023-05-30] MEDS: OMEGA 3 POLYUNSAT FATTY ACIDS 1 GM CAP PO (08:59)
[2023-05-30 12:24] LABS: Glucose Point of Care 145 mg/dl (65-105)
--- NOTE | 2023-05-30 13:25 | PM.DS ---
DS: Admitting Diagnosis Discharge Date 05/30/23 Admitting Diagnosis chest palpitations, left hand paresthesia DS: Discharge Diagnosis Discharge Diagnosis (1) Paresthesia of hand: Qualifiers: Laterality: left Qualified Code(s): R20.2 - Paresthesia of skin Code(s): R20.2 - Paresthesia of skin Status: Acute Assessment and Plan: Left hand with paresthesia in a glove distribution - no specific radial/ulnar/median nerve distribution, the symptoms were specifically the entirety of the hand from the wrist down. There was no inciting factor. There is no recent trauma. CT brain negative acute finding. MRI Brain negative acute finding. Carotid dopplers negative acute findings. Labs essentially unremarkable. Symptoms have nearly resolved at this time with a slight amount of paresthesia at the left lateral hand this morning. There is normal sensation to the rest of the hand. (2) Atypical chest pain: Code(s): R07.89 - Other chest pain Status: Acute Assessment and Plan: He describes as a twinge, or skipping a beat. He denies any pain or shortness of breath. He has had stress testing in the last few years which was negative. (3) Diabetes type 2, controlled: Code(s): E11.9 - Type 2 diabetes mellitus without complications Status: Acute Assessment and Plan: Stable on metformin. DS: Summary Hospital Course Reason for hospitalization: Left hand numbness Hospital Course: Rick Nieto is a 58 y/o male with pmh of DM and HLD who presented with acute onset of left hand numbness without acute inciting factors. He had workup with ct head, mri brain, carotid dopplers, and labs. There are no acute findings that are outside of normal defined limits. His symptoms are improving with near resolution of the paresthesia, question a mononeuropathy. There was a question of atypical chest pain, troponins and ecgs were unremarkable, and those symptoms have not persisted. I would recommend further outpatient f/u if symptoms do not fully resolve or return. Consider EMG. Status at Discharge Cognitive/behavioral status at discharge: Baseline. Time Spent with Patient Time attestation: Total time spent providing and/or coordinating discharge services: Time spent: Greater than 30 minutes Exam Narrative: GENERAL APPEARANCE: Appears to be in no acute distress. HEAD: normocephalic atraumatic EYES: PERRL, EOMI. Vision grossly intact. ENT: Hearing grossly intact, no nasal discharge NECK: Neck supple, trachea midline. CARDIAC: Normal S1/S2. Rhythm is regular. No murmurs, rubs, or gallops. No cyanosis or pallor. Extremities are warm and well perfused. LUNGS: Clear to auscultation without rales, rhonchi, wheezing or diminished breath sounds. Respirations even and unlabored. ABDOMEN: BS positive x 4 quadrants. Soft, nondistended, nontender. No guarding or rebound. MSK: No joint tenderness/swelling, fair strength in all extremities. PERIPHERAL VASCULAR: Peripheral pulses palpable. Normal perfusion, cap refill <2 seconds. No edema. NEURO: Follows commands. Left lateral hand with mildly diminished sensation to light touch. Remainder of extremity normal sensation to light touch. SKIN: [place] without lesions or eruptions. PSYCH: Stable, no paranoia or delusional thinking. DS: Data Data Completed and Pending Pending studies at discharge: serum b12. Labs on day of discharge: Labs from last 24 hours 05/30/23 05/30/23 05/30/23 12:19 08:28 02:37 WBC RBC Hgb Hct MCV MCH MCHC RDW Plt Count MPV Immature Gran % (Auto) Neut % (Auto) Lymph % (Auto) Shannon % (Auto) Eos % (Auto) Baso % (Auto) Lymph # (Auto) Shannon # (Auto) Eos # (Auto) Baso # (Auto) Abs Immat Gran (auto) Absolute Neuts (auto) Absolute Nucleated RBC Nucleated RBC % PT INR APTT Sodium Potassium Chloride Carbon Dioxide Anion
== END 2023-05-30 15:36 | disposition home or self-care (01) ==
LOC: ANHED 05-30 00:37 → ANH2MED 05-30 02:39
PROVIDERS: Emergency Medicine; Admitting Provider Internal Medicine; Emergency Provider Physician Assistant; PCP Family Medicine; Visit Provider Family Medicine
DX: R20.2 Paresthesia of skin (principal); R20.0 Anesthesia of skin; R07.89 Other chest pain; E11.9 Type 2 diabetes mellitus without complications; R60.0 Localized edema; I11.9 Hypertensive heart disease without heart failure; E78.5 Hyperlipidemia, unspecified; F41.9 Anxiety disorder, unspecified; G47.33 Obstructive sleep apnea (adult) (pediatric); K76.0 Fatty (change of) liver, not elsewhere classified; R74.01 Elevation of levels of liver transaminase levels; E66.9 Obesity, unspecified; Z68.39 Body mass index [BMI] 39.0-39.9, adult; Z79.84 Long term (current) use of oral hypoglycemic drugs; Z79.899 Other long term (current) drug therapy; Z83.3 Family history of diabetes mellitus; Z82.49 Family history of ischemic heart disease and other diseases of the circulatory system; Z84.89 Family history of other specified conditions
CPT/HCPCS: 36415; 70450; 70551; 71046; 71275; 74174; 80053; 82948; 83690; 83880; 84484; 85025; 85610; 85730; 93005; 93306; 93880; 99285; A9270; G0378; Q9967

== ENCOUNTER 2023-06-18 09:00 | Outpatient (NON) | payer OTHER, SELFPAY | END 2023-06-18 09:01 | disposition home or self-care (01) | LOC: ANHLAB 06-19 14:43 | PROVIDERS: PCP Family Medicine; Visit Provider Nurse Practitioner | DX: L72.0 Epidermal cyst (principal) | CPT/HCPCS: 88304 ==

== ENCOUNTER 2024-01-11 23:10 | Emergency (ER) | payer OTHER, SELFPAY ==
--- NOTE | ~2024-01-11 | XR_ITS ---
EXAMINATION: XR chest 1V portable DATE: 01/12/2024 01:36 INDICATION: Chest discomfort. TECHNIQUE: A single frontal view of the chest was obtained. COMPARISON: Chest 2 views 05/29/2023, CT abdomen and pelvis 01/12/2024 FINDINGS: There is no pneumonia, pleural effusion, or pneumothorax. The heart size is normal. IMPRESSION: 1. No acute cardiopulmonary disease. Reviewed, dictated and finalized at location A. STRIAL CAFETERIA MANAGER
--- NOTE | ~2024-01-11 | CT_ITS ---
EXAMINATION: CT abdomen pelvis w con DATE: 01/12/2024 02:10 INDICATION: Suprapubic abdominal pain. TECHNIQUE: Computed tomography (CT) of the abdomen and pelvis was performed with 100 mL Omnipaque 350 intravenous contrast. Automated exposure control and iterative reconstruction technique were employe d. The dose-length product was 1298.07 mGy-cm. COMPARISON: CT abdomen and pelvis 05/29/2023 FINDINGS: The visualized portions of the lung bases demonstrate mild atelectasis. No pleural effusion . The heart size is normal. No pericardial effusion. There is a small sliding hiatal hernia. The live r is normal. There are gallstones in the gallbladder, which is normal in size. The spleen, pancreas, and adrenal glands are normal. There is a 14 mm cyst in right kidney. Left kidney is normal. There ar e no dilated loops of bowel. The appendix is normal. There are no pathologically enlarged lymph nodes . There is no free intraperitoneal fluid. There is mild thoracic spondylosis and moderate lumbar spon dylosis. IMPRESSION: 1. Small sliding hiatal hernia. 2. Cholelithiasis. Reviewed, dictated and finalized at location A. ICAL ENGINEERING MANAGER
[2024-01-11 23:16] VITALS: BP 140/67; PULSE 76; RESP 16; TEMP 36.2; O2SAT 100
[2024-01-12] VITALS (9 sets, daily range): PULSE 62–81; RESP 15–20; O2SAT 95–99
[2024-01-12 00:31] LABS: Basophils Percent Auto 0.3 % (0.2-1.2); Eosinophils Absolute Auto 0.2 K/mm3 (0-0.3); Eosinophils Percent Auto 1.4 % (0-4.4); Hemoglobin 14.1 g/dL (14.0-18.0); Immature Granulocyte Absolute 0.04 K/mm3 (0.00-0.031); Immature Granulocyte Percent A 0.3 % (0-0.5); Lymphocytes Percent Auto 8.7 % (18.3-44.2); Mean Corpuscular HGB Conc 32.8 g/dl (32-36); Mean Corpuscular Volume 94.5 fl (80-100); Mean Platelet Volume 10.7 fl (7.4-10.4); Monocytes Absolute Auto 1.5 K/mm3 (0.1-0.6); Monocytes Percent Auto 10.3 % (2.6-8.5); Neutrophils Absolute Auto 11.8 K/mm3 (1.3-6.7); Platelet Count Result 178 k/mm3 (150-375); Red Blood Count 4.55 M/mm3 (4.6-6.20); Red Cell Distribution Width 12.8 % (11.5-14.5); White Blood Count 14.9 K/mm3 (4.5-10.0)
[2024-01-12 01:04] LABS: Appearance Urine Clear (Clear); Bacteria Urine None Seen /hpf; Bilirubin Urine Negative (Negative); Blood Urine Negative (Negative); Color Urine Yellow (Yellow); Glucose Urine UA Negative (Negative); Ketones Urine 2+ mg/dL (Negative); Leukocyte Esterase Ur 1+ LEU/UL (Negative); Nitrate Urine Negative (Negative); Non Pathogenic Casts 0-2; Protein Urine Negative (Negative); RBC Urine 0-2 /hpf (0-2); Specific Grav Ur 1.028 (1.001-1.035); Squamous Epithelial Cell Urine None seen /hpf (Few); Urobilinogen Urine 0.2 mg/dL (<2.0)
[2024-01-12 01:06] LABS: Add Urine Microscopic? YES
--- NOTE | 2024-01-12 01:15 | ECG_ITS ---
Measurements Intervals [place] Rate: 80 P: 27 RI: 175 QRS: 9 QRSD: 107 T: 15 QT: 376 QTc: 435 Interpretive Statements SINUS RHYTHM NONSPECIFIC T-WAVE ABNORMALITY ABNORMAL ECG COMPARED TO ECG 05/29/2023 20:17:22 NO SIGNIFICANT CHANGES Electronically Signed On 01-12-2024 8:21:15 [employer] [employer] by Craig Petersen M.D.
[2024-01-12] MEDS: ONDANSETRON INJ 4 MG/2 ML VIAL IV PUSH (01:39)
[2024-01-12 01:43] LABS: Alanine Aminotransferase 48 U/L (6-50); Albumin Level 4.9 g/dL (3.5-5.1); Alkaline Phosphatase 115 U/L (38-126); Anion Gap 9 mmol/L (8-16); Aspartate Amino Transferase 41 U/L (17-59); Bilirubin,Total 0.7 mg/dL (0.2-1.3); Blood Urea Nitrogen 27 mg/dL (9-20); Calcium 9.8 mg/dL (8.4-10.2); Carbon Dioxide 27 mmol/L (22-30); Chloride 105 mmol/L (98-107); Estimated CRCL calculation 121 ml/min; Estimated Glomerular Filt Rate > 60; Glucose 138 mg/dL (65-110); Lipase 130 U/L (23-300); Potassium 4.3 mmol/L (3.4-5.0); Sodium 141 mmol/L (137-145)
--- NOTE | 2024-01-12 01:54 | ED.ABDPAIN ---
HPI - Abdominal Pain General Chief Complaint: Abdominal Pain <Kaycee Catalan PA-C - Last Filed: 01/12/24 03:08> Stated Complaint: stomach cramping up, nausea, diarrhea <Kaycee Catalan PA-C - Last Filed: 01/12/24 03:08> Time Seen by Provider: 01/12/24 00:50 <Kaycee Catalan PA-C - Last Filed: 01/12/24 03:08> History of Present Illness HPI narrative: 58-year-old male with history of type 2 diabetes, hyperlipidemia, hypertension, CAD reports for evaluation for abdominal pain. Patient states around 8:30 p.m. this evening, he began developing suprapubic abdominal cramping and has since had diarrhea 1 episode of emesis. He states his abdominal cramping has improved but he feels generally weak. He is also reporting left anterior chest discomfort that is intermittent has been chronic for a few months. States that this is unchanged from his baseline and he has been evaluated by his mill hand plate mill, Dr. Petersen. states he has known 50% stenosis of 1 of his coronary arteries and is scheduled to undergo cardiac catheterization in the next 5 days. Reports mild associated dyspnea but states this chest discomfort is unchanged from his baseline. Patient states he reported because he wanted to make sure his abdominal cramping was not associated with his heart disease. Denies fever, dysuria, hematuria, urinary frequency urgency, melena or hematochezia, hemoptysis, cough or congestion. Reports lower extremity edema that is unchanged from his baseline. <Kaycee Catalan PA-C - Last Filed: 01/12/24 03:08> Related Data Home Medications: Home Medications Medication Instructions Recorded Confirmed furosemide 40 mg tablet 40 mg PO QAM 11/21/20 09/23/23 multivitamin (Daily Multi-Vitamin 1 tablet PO DAILY 01/31/21 09/23/23 tablet) ascorbic acid (vitamin C) 1,000 mg 1 g PO DAILY 03/20/23 09/23/23 capsule zinc acetate 50 mg (zinc) capsule 50 mg PO DAILY 03/20/23 09/23/23 metformin 500 mg tablet,extended 2,000 mg PO QPM 05/30/23 09/23/23 release 24 hr aspirin 81 mg tablet,delayed 81 mg PO DAILY 09/23/23 09/23/23 release (Adult Aspirin Regimen) atorvastatin 20 mg tablet 20 mg PO DAILY 09/23/23 09/23/23 omega-3 fatty acids 1,000 mg 1,000 mg PO .COMPLEX 09/23/23 09/23/23 capsule (Fish Oil Concentrate) <Kaycee Catalan PA-C - Last Filed: 01/12/24 03:08> Allergies/Adverse Reactions: Allergies Allergy/AdvReac Type Severity Reaction Status Date / Time lisinopril Allergy Intermediate Cough Verified 09/23/23 16:30 rosuvastatin [From Crestor] Allergy Intermediate Elevated CK Verified 09/23/23 16:30 tetracycline Allergy Intermediate HIVES Verified 09/23/23 16:30 semaglutide [From Ozempic] AdvReac Mild Nausea Verified 09/23/23 16:30 <Kaycee Catalan PA-C - Last Filed: 01/12/24 03:08> Review of Systems Review of Systems: CONSTITUTIONAL: Denies fever, chills, or sweats. EYES: Denies visual changes, redness, or discharge. ENT: Denies rhinorrhea, congestion, sore throat, or otalgia. CARDIOVASCULAR: see HPI RESPIRATORY: see HPI GASTROINTESTINAL: See HPI GENITOURINARY: Denies dysuria or hematuria. SKIN: Denies rash or itching. MUSCULOSKELETAL: Denies back pain, joint pain, or myalgia. NEUROLOGIC: Denies headache, numbness, or weakness. PSYCHIATRIC: Denies anxiety or depression. <Kaycee Catalan PA-C - Last Filed: 01/12/24 03:08> [facility] Past Medical History Medical History: Medical History Adult BMI 39.0-39.9 kg/sq m Anxiety BMI 35.0-35.9,adult BMI 37.0-37.9, adult BMI 38.0-38.9,adult Chest pain Hyperlipidemia Lower extremity edema Obesity Obstructive sleep apnea <Kaycee Catalan PA-C - Last Filed: 01/12/24 03:08> Surgical History Surgical History: Surgical History H/O colonoscopy H/O removal of cyst Dr. Norris History of eye surgery <Crystal
[2024-01-12 01:55] LABS: INR 1.1; Prothrombin Time 14.8 Seconds (11.1-14.7)
[2024-01-12 01:56] LABS: Partial Thromboplastin Time 26.8 SECONDS (22.3-36.8)
[2024-01-12 02:23] LABS: NT Pro B Type Natriuretic Pept 54 pg/mL (19.9-100); Troponin I < 0.012 ng/mL (0.000-0.034)
[2024-01-12 04:50] LABS: Troponin I < 0.012 ng/mL (0.000-0.034)
== END 2024-01-12 07:37 | disposition home or self-care (01) ==
LOC: ANHED 01-12 03:46
PROVIDERS: Emergency Medicine; Emergency Provider Physician Assistant; PCP Family Medicine
DX: R07.89 Other chest pain (principal); R10.9 Unspecified abdominal pain; R11.2 Nausea with vomiting, unspecified; R19.7 Diarrhea, unspecified; E11.9 Type 2 diabetes mellitus without complications; E78.5 Hyperlipidemia, unspecified; I10 Essential (primary) hypertension; I25.10 Atherosclerotic heart disease of native coronary artery without angina pectoris
CPT/HCPCS: 36415; 71045; 74177; 80053; 81001; 83690; 83880; 84484; 85025; 85610; 85730; 87086; 93005; 96374; 99284; J2405; Q9967

== ENCOUNTER 2024-12-10 10:43 | Outpatient (CLI) | payer OTHER, SELFPAY ==
--- NOTE | ~2024-12-10 | US_ITS ---
US abdomen complete EXAMINATION: US Abdomen Complete INDICATION: Gallstones. Hyperlipidemia. PROCEDURE: Realtime High Resolution abdomen ultrasound. COMPARISON: No prior studies for comparison FINDINGS: There are gallstones. No gallbladder wall thickening or pericholecystic fluid. Common bile duct measures 3 mm. Liver echotexture is increased, consistent with fatty infiltration.. Pancreas within normal limits. Pancreatic tail is obscured by bowel gas. Spleen is enlarged measuring 13.7 cm. Renal echotexture i s within normal limits bilaterally without hydronephrosis, contour deforming mass. There is a 3 mm ec hogenic foci in the left kidney, suspicious for nonobstructing stone. Right kidney measures 11.3 cm. Left kidney measures 12.7 cm. Visualized aspects of the aorta and IVC are within normal limits. Portal vein is patent. No sonograph ic Fernadno's sign indicated by the technologist. IMPRESSION: 1: Cholelithiasis. 2: Possible nonobstructing left renal stone measuring 3 mm. 3: Hepatic steatosis. 4: Splenomegaly. Reviewed, dictated and finalized at location B. N AND RECTAL SURGEON
== END 2024-12-10 10:44 | disposition home or self-care (01) ==
PROVIDERS: PCP Family Medicine; Visit Provider Nurse Practitioner Family
DX: K80.20 Calculus of gallbladder without cholecystitis without obstruction (principal); K76.0 Fatty (change of) liver, not elsewhere classified; R16.1 Splenomegaly, not elsewhere classified
CPT/HCPCS: 76700

== ENCOUNTER 2025-02-11 17:07 | Emergency (ER) | payer OTHER, SELFPAY ==
[2025-02-11 17:14] VITALS: BP 149/80; PULSE 80; RESP 20; TEMP 36.2; O2SAT 97
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
== END 2025-02-11 17:39 | disposition home or self-care (01) ==
PROVIDERS: Emergency Provider Nurse Practitioner Family; PCP Family Medicine
DX: M79.672 Pain in left foot (principal); E11.9 Type 2 diabetes mellitus without complications
CPT/HCPCS: 99213; G0463

== ENCOUNTER 2025-05-11 16:02 | Emergency (ER) | payer OTHER, SELFPAY ==
--- NOTE | ~2025-05-11 | XR_ITS ---
XR tibia fibula RT 2V Ordering provider: Jin Street APRN History: . right anterior leg pain/injury . Comparison: July 22, 2018 FINDINGS: BONES: No acute fracture or dislocation. JOINT SPACES: Normal. SOFT TISSUES: Normal. 6 indication of the insertion of the tendo Achilles. IMPRESSION: No acute osseous abnormality right leg. Reviewed, dictated and finalized at location A.
--- NOTE | 2025-05-11 16:08 | ED_ITS ---
HPI - Extremity Problem General Chief complaint: Extremity Injury, Lower Stated complaint: pain in right leg Time Seen by Provider: 05/11/25 16:09 Source: patient Mode of arrival: ambulatory Limitations: no limitations History of Present Illness HPI Narrative: Rick is a 60-year-old male patient presenting to the clinic today with complaints of pain in his right anterior leg. He reports on Saturday he was stepping over a baby gate and caught/hit his right leg on the top of the gate. States that the pain has gradually gotten worse. Rates his pain currently a 5/10. [place] as though it was warm to touch this morning. Patient has only taken 200 mg ibuprofen today and that did not seem to help his symptoms. Normally has swollen lower extremities-has been taking a water pill for a couple years for lower extremity edema. Denies any chest pain or shortness of breath. No history of DVT in the past. Denies immobilization or history of cancer. Is not taking any hormone therapy. Related Data Home Medications ?Medication ?Instructions ?Recorded ?Confirmed ?Last Taken ?Type furosemide 40 mg tablet 40 mg PO QAM 11/21/20 04/19/25 05/29/23 History multivitamin (Daily Multi-Vitamin 1 tablet PO DAILY 01/31/21 04/19/25 05/29/23 History tablet) ascorbic acid (vitamin C) 1,000 mg 1 g PO DAILY 03/20/23 04/19/25 05/29/23 History capsule zinc acetate 50 mg (zinc) capsule 50 mg PO DAILY 03/20/23 04/19/25 05/29/23 History aspirin 81 mg tablet,delayed 81 mg PO DAILY 09/23/23 04/19/25 Unknown History release (Adult Aspirin Regimen) omega-3 fatty acids 1,000 mg 1,000 mg PO .COMPLEX 09/23/23 04/19/25 Unknown History capsule (Fish Oil Concentrate) Allergies Allergy/AdvReac Type Severity Reaction Status Date / Time lisinopril Allergy Intermediate Cough Verified 05/11/25 16:17 rosuvastatin (From Crestor) Allergy Intermediate Elevated CK Verified 05/11/25 16:17 tetracycline Allergy Intermediate HIVES Verified 05/11/25 16:17 semaglutide (From Ozempic) AdvReac Mild Nausea Verified 05/11/25 16:17 Review of Systems Review of Systems: Pertinent positives per HPI. Patient denies any fever, chills, rash, headache, visual changes, dizziness, cough, runny nose, sore throat, shortness of breath, chest pain, palpitations, nausea, vomiting, diarrhea, constipation, abdominal pain, or any urinary issues. [facility] Past Medical History Medical History Atypical chest pain Elevated blood pressure reading Ear pain, left Elevated WBC count Abdominal pain Paresthesia of hand Elevated CK Elevated CK Whiplash injury Elevated ALT measurement Elevated glucose Adult BMI 39.0-39.9 kg/sq m Papilloma of oropharynx Obstructive sleep apnea Lower extremity edema Hyperlipidemia Anxiety Chest pain Obesity Surgical History Surgical History S/P cardiac cath H/O colonoscopy History of eye surgery H/O removal of cyst Dr. Norris Family History Family History Father Diabetes mellitus Gout Hypertension Mother Heart disease Arteriosclerosis of bypass graft of coronary artery Ovarian cancer Hypertension Sibling Diabetes mellitus Sleep apnea Social History Social History Smoking status: Never smoker Second hand tobacco smoke exposure: Yes Alcohol intake: never Substance use: never Substance use type: does not use Do You Feel Safe in your Home?: Yes Lack of Transportation: No Lack of Food: Never True Current Housing: I Have Housing Concerned About Future Housing: No Difficulty Paying Gas/Electric Bills: No Difficulty Paying for Meds: No Currently Unemployed: No Education: High School Diploma/GED Difficulty w/ Childcare or Family Care: No Living arrangements: with family Occupation/Education: occupation 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 There is no relevant family history pertinent to the patient complaint. Exam Narrative: General: Well-developed, well nourished, in no apparent distress Head: Normocephalic, atraumatic. Cardio: Regular rate and rhythm, s1 and s2 normal, no murmur appreciated. Resp: Clear to auscultation bilaterally, no rhonchi, rales, wheezing or rubs. Musculoskeletal: No deformity, very minimal redness to the right lower anterior leg, tender to palpation over the right anterior lower leg, no palpable hematoma or abscess, grossly normal range of motion, muscle strength strong and equal, peripheral pulse strong, 1+ pitting edema in bilateral lower extremity, no cyanosis, normal gait and station Course Course Emergency Course: Portions of this record may have been created with voice recognition software. Level of Care: Express Care Visit Vital Signs Vital signs: Vital Signs Temperature 36.7 C 05/11/25 16:11 Pulse Rate 76 05/11/25 16:11 Respiratory Rate 16 05/11/25 16:11 Blood Pressure 156/74 H 05/11/25 16:11 Pulse Oximetry 99 05/11/25 16:11 Oxygen Delivery Room Air 05/11/25 16:11 Temperature 36.7 C 05/11/25 16:11 Pulse Rate 76 05/11/25 16:11 Respiratory Rate 16 05/11/25 16:11 Blood Pressure 156/74 H 05/11/25 16:11 Pulse Oximetry 99 05/11/25 16:11 Oxygen Delivery Room Air 05/11/25 16:11 Vital signs reviewed MDM - Extremity (Nontraumatic) MDM Narrative Medical decision making narrative: At the time of visit patient is resting comfortably on the exam table. Patient appears to be nontoxic. Diagnostics: X-ray of the right lower extremity is negative for any fracture or malalignment. Plan: I suspect patient has right leg contusion. Supportive measures were discussed with the patient and they voiced understanding discharge instructions and agrees to treatment plan. Return precautions reviewed Well criteria for DVT: -2?points Low risk group for DVT. ?Unlikely? according to Wells? DVT studies. Differential Diagnosis Differential diagnosis: Likely cellulitis, superficial thrombophlebitis, lower extremity edema, deep vein thrombosis of lower extremity and other (Contusion, hematoma, tibia fracture) Discharge Plan Discharge Clinical Impression: Contusion of lower leg, right Qualifiers: Encounter type: initial encounter Qualified Code(s): S80.11XA - Contusion of right lower leg, initial encounter Patient Disposition: Home Condition: Stable Instructions: Antibiotic Form, Contusion in Adults (ED) Additional Instructions: X-rays negative for any sign of fracture or malalignment of the right tib-fib Wells criteria DVT score as low risk Rest, ice, and elevate Tylenol/motrin for pain as discussed. Follow up with your PCP if symptoms persist more than 1 week. Patient Language: Guamanian Prescriptions: No Action furosemide 40 mg tablet 40 mg PO QAM zinc acetate 50 mg (zinc) capsule 50 mg PO DAILY ascorbic acid (vitamin C) 1,000 mg capsule 1 g PO DAILY aspirin [Adult Aspirin Regimen] 81 mg tablet,delayed release (DR/EC) 81 mg PO DAILY losartan 100 mg tablet 100 mg PO QPM Qty: 90 3RF multivitamin [Daily Multi-Vitamin] Tablet 1 tablet PO DAILY omega-3 fatty acids [Fish Oil Concentrate] 1,000 mg capsule 1,000 mg PO .COMPLEX Rx Instructions: 1,000 mg orally TID; ezetimibe [Zetia] 10 mg tablet 10 mg PO DAILY Qty: 90 0RF metformin 500 mg tablet extended release 24 hr 2,000 mg PO QPM Qty: 120 3RF Follow-up/Referrals: Tony Nichols MD [Primary Care Provider] - Time of Disposition: 17:10 Quality NIHSS Nursing Documentation ED NIHSS nursing documentation: reviewed/agree
[2025-05-11 16:11] VITALS: BP 156/74; PULSE 76; RESP 16; TEMP 36.7; O2SAT 99
== END 2025-05-11 17:15 | disposition home or self-care (01) ==
PROVIDERS: Emergency Provider Nurse Practitioner Family; PCP Family Medicine
DX: S80.11XA Contusion of right lower leg, initial encounter (principal); W22.8XXA Striking against or struck by other objects, initial encounter; E78.5 Hyperlipidemia, unspecified; E66.9 Obesity, unspecified; Z68.39 Body mass index [BMI] 39.0-39.9, adult; Z79.82 Long term (current) use of aspirin
CPT/HCPCS: 73590; 99213; G0463

== ENCOUNTER 2025-05-12 20:33 | Emergency (ER) | payer OTHER, SELFPAY ==
--- NOTE | ~2025-05-12 | XR_ITS ---
XR foot RT min 3V Ordering provider: Ewa Holden APRN History: . R foot injury X 1 WEEK AGO . Comparison: None. FINDINGS: BONES: No acute fracture or dislocation. JOINT SPACES: Narrowing of the first metatarsophalangeal joint. No tarsal coalition. SOFT TISSUES: Normal. Ossification of the insertion of the tendo Achilles. IMPRESSION: No acute osseous abnormality of the right foot. Reviewed, dictated and finalized at location A.
--- NOTE | ~2025-05-12 | US_ITS ---
RIGHT LOWER EXTREMITY VENOUS ULTRASOUND Ordering provider: Ewa Holden APRN History: . redness and swelling . Comparison: None. FINDINGS: --COMMON FEMORAL: Patent and free of thrombus. Normal compressibility, phasic flow and augmentation. --PROXIMAL SUPERFICIAL FEMORAL: Patent and free of thrombus. Normal compressibility, phasic flow and augmentation. --DISTAL SUPERFICIAL FEMORAL: Patent and free of thrombus. Normal compressibility, phasic flow and au gmentation. --POPLITEAL: Patent and free of thrombus. Normal compressibility, phasic flow and augmentation. --POSTERIOR TIBIAL: Patent and free of thrombus. Normal compressibility, phasic flow and augmentation . IMPRESSION: Negative right lower extremity venous US. No deep vein thrombosis. Reviewed, dictated and finalized at location A.
--- NOTE | ~2025-05-12 | XR_ITS ---
XR tibia fibula RT 2V Ordering provider: Ewa Holden APRN History: . RLE injury . Comparison: None. FINDINGS: BONES: Fracture of the proximal metaphysis of the right fibula is highly suggestive. JOINT SPACES: Normal. SOFT TISSUES: Normal. IMPRESSION: Highly suggestive fracture of the proximal metaphysis of the right fibula. Clinical correlation and f ollow-up advised. Reviewed, dictated and finalized at location A. IMPRESSION: Highly suggestive fracture of the proximal metaphysis of the right fibula. Clin ical correlation and follow-up advised.
--- OUTSIDE RECORDS SUMMARY | 2025-05-12 20:36 | XMS_ITS | Referral Summary ---
Author Organization [facility] Address [facility] [place] [address] Care Team Providers Care Slope Tender Name Role Phone Tony Nichols MD Primary Care Provider [phone] Encounters Date Type Department Care Team Description 02/18/2025 3:30 PM CDT Office Visit [facility] Cardiology [address] [place] [address] Ellen Jasmine NP Nonobstructive atherosclerosis of coronary artery (Primary Dx); Essential hypertension; CRISTINA treated with BiPAP from Last 3 Months Allergies Active Allergy Reactions Criticality Noted Date Comments Tetracyclines Hives Medium 01/29/2020 Medications omega-3 fatty acids 1,000 mg capsule Take 2 capsules by mouth daily Active multivitamin tabletIndicatio ns:Vitamin Deficiency Prevention Take 1 tablet by mouth Active losartan (COZAAR) 100 mg tablet 1 tablet (100 mg total) 1 Active metFORMIN XR (GLUCOPHAGE XR) 500 mg 24 hr tablet Take 4 tablets (2,000 mg total) by mouth daily with breakfast 3 Active zinc gluconate 50 mg tablet Take 1 tablet (50 mg total) by mouth daily Active ascorbic acid (vitamin C) 1,000 mg tablet Take 1 tablet (1,000 mg total) by mouth daily Active aspirin 81 mg enteric coated tablet Take 1 tablet by mouth once daily 30 tablet 4 Active furosemide (LASIX) 40 mg tabletIndicatio ns:Bilateral lower extremity edema Take 1 tablet by mouth once daily 90 tablet 1 5 Active ezetimibe (ZETIA) 10 mg tablet 5 Active Active Problems Problem Noted Date Diagnosed Date Coronary artery disease invo lving redd[place] coronary artery of redding heart 12/17/2023 Left arm numbness 08/14/2023 Palpitations 08/14/2023 Essential hypertension 11/02/2021 Pulmonary hypertension 08/30/2021 PND (paroxysmal nocturnal dyspnea) 10/19/2020 Hypersomnolence 10/19/2020 Excessive daytime sleepiness 10/19/2020 Pulmonary hyperinflation 10/19/2020 Gastroesophageal reflux disease without esophagi tis 01/29/2020 Morbid (severe) obesity due to excess calories 0 01/29/2020 Atypical chest pain 01/29/2020 Hyperlipidemia LDL goal <100 01/29/2020 Bilateral lower extremity edema 01/29/2020 CRISTINA treated with BiPAP 01/29/2020 Social History Tobacco Use Types Packs/Day Years Used Date Smoking Tobacco: Never Smokeless Tobacco: Never Tobacco Cessation:Counseling Given: Not Answered Alcohol Use Standard Drinks/Week Comments Never 0 (1 standard drink = 0.6 oz pur e alcohol) AUDIT-C Answer Date Recorded Frequency of Alcohol Consumption Not on file 01/16/2024 Q2: How many drinks containi ng alcohol do you have on a typical day when you are drinking? Patient does not drink Frequency of Binge Drinking Not on file 01/02 Personal Safety Answer Date Recorded Have you ever been in or are you currently in a harmful physical or emotional relationship or is someone making you feel afraid or unsafe? 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 Gender Identity Not on file Sexual Orientation Not on file Last Filed Vital Signs Vital Sign Reading Time Taken Comments Blood Pressure 138/74 02/18/2025 4:08 PM CDT Pulse 87 02/18/2025 3:38 PM CDT Temperature 36.8 C (98.3 F) 01/16/2024 6:46 AM CAFETERIA WORKER Respiratory Rate 20 01/16/2024 6:46 AM CAFETERIA WORKER Oxygen Saturation 96% 02/18/2025 3:38 PM CDT Inhaled Oxygen Concentration - - Weight 137.9 kg (304 lb) 02/18/2025 3:38 PM CDT Height 185.4 cm (6' 1) 02/18/2025 3:38 PM CDT Body Mass Index 40.11 02/18/2025 3:38 PM CDT Plan of Treatment Not on file Medical Devices Implanted Type Area Dubbing Machine Operator Device Identifier Shelf Expiration Date Model / Serial / Lot [employer] Device Closure Vascade Od5 Fr Femoral Artery [id number] - [id number] Implanted:Qty: 1 on 01/16/2024 by Wei Kruger MD at [facility] [employer] [id number] / / Insurance [facility] CHOICE PLUS [employer] [facility] CHOICE PLUS Care Teams Slope Tender Relationship Specialty Start Date End Date Tony Nichols MD PCP - General Family Medicine 11/30/20
--- OUTSIDE RECORDS SUMMARY | 2025-05-12 20:36 | XMS_ITS | Clinical Summary ---
Author Organization [facility] Address [address] [place] [address] Care Team Providers Care Fur Stylist Name Role Phone Tony Nichols MD Primary Care Provider [phone] Allergies Active Allergy Reactions Criticality Noted Date [...] Diagnosed Date Coronary artery disease invo lving [place] coronary artery of [place] heart 12/17/2023 Left arm numbness 08/14/2023 Palpitations 08/14/2023 Essential hypertension 11/02/2021 Pulmonary hypertension 08/30/2021 PND (paroxysmal nocturnal dyspnea) 10/19/2020 Hypersomnolence 10/19/2020 Excessive daytime sleepiness 10/19/2020 Pulmonary hyperinflation 10/19/2020 Gastroesophageal reflux disease without esophagi tis 01/29/2020 Morbid (severe) obesity due to excess calories 0 01/29/2020 Atypical chest pain 01/29/2020 Hyperlipidemia LDL goal <100 01/29/2020 Bilateral lower extremity edema 01/29/2020 CRISTINA treated with BiPAP 01/29/2020 Encounters Date Type Department Care Team Description 02/18/2025 3:30 PM CDT Office Visit [facility] Cardiology [address] [place] [address] Ellen Jasmine NP Nonobstructive atherosclerosis of coronary artery (Primary Dx); Essential hypertension; CRISTINA treated with BiPAP from Last 3 Months Surgical History Surgery Date Site/Laterality Comments CARDIAC CATHETERIZATION 01/02/2024 - 01/30/2024 Medical History Medical History Date Comments Hyperlipidemia Acid indigestion Anxiety Hypertension 08/30/2021 Sleep apnea Family History Medical History Relation Name Comments Diabetes Father Hyperlipidemia Father Hypertension Father Transient ischemic attack Father sepsis Father Diabetes Mother Heart disease Mother Hyperlipidemia Mother Hypertension Mother Ovarian cancer Mother Relation Name Status Comments Brother 1 Alive Brother 2 Alive Father (Age 77) Mother (Age 71) Social History Tobacco Use Types Packs/Day Years [...] on file 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 Gender Identity Not on file Sexual Orientation Not on file Obstetrics History Last Filed Vital Signs Vital Sign Reading Time Taken Comments Blood Pressure 138/74 02/18/2025 4:08 PM CDT Pulse 87 02/18/2025 3:38 PM CDT Temperature 36.8 C (98.3 F) 01/16/2024 6:46 AM CHARGE LOADER Respiratory Rate 20 01/16/2024 6:46 AM CHARGE LOADER Oxygen Saturation 96% 02/18/2025 3:38 PM CDT Inhaled Oxygen Concentration - - Weight 137.9 kg (304 lb) 02/18/2025 3:38 PM CDT Height 185.4 cm (6' 1) 02/18/2025 3:38 PM CDT Body Mass Index 40.11 02/18/2025 3:38 PM CDT Plan of Treatment Health Maintenance Due Date Last Done Comments Colon Cancer Screening-Colonoscopy 1965 Depression Screening 1963 Hepatitis C Screening 1963 Prostate Cancer Screening-PSA 1963 DTaP/Tdap/Td Vaccine (1 - Tdap) 1974 Hepatitis B Screening 1981 Regular Well Visit/Exam 18-64 1981 Zoster Vaccine (1 of 2) 2013 Covid-19 Vaccine ( - season) 2024 08/05/2021, 07/12/2021 Influenza Vaccine (Season Ended) 2025 09/15/2021, 09/15/2020, 09/23/2019, Additional history exists Pneumococcal vaccine <65 Aged Out No longer eligible based on patient's age to complete this topic Medical Devices Implanted Type Area Coil Winder Repair Device Identifier Shelf Expiration Date Model / Serial / Lot [employer] Device Closure Vascade Od5 Fr Femoral Artery [id number] - [id number] Implanted:Qty: 1 on 01/16/2024 by Wei Kruger MD at [facility] [employer] [id number] / / Insurance [facility] OPEN [facility] CHOICE PLUS [facility] CHO[facility] PLUS Care Teams Fur Stylist Relationship Specialty Start Date End Date Tony Nichols MD PCP - General Family Medicine 11/30/20
--- OUTSIDE RECORDS SUMMARY | 2025-05-12 20:36 | XMS_ITS | Continuity of Care Document ---
Author Organization [facility] Address [address] [place] [address] Phone Care Team Providers Care Pen Tender Name Role Phone Temo Hoyt MD Unavailable [...] PC AFTER CATARACT LASER SURGERY OFFICE/OUTPATIENT VISIT, [facility] REFRACTION Advance Directives Directive Yes / No Effective Date File Name No Information Encounters Encounter Description Practice Location Reason(s) For Visit Diagnoses Date Provider Providers Copied on Encounter [facility], [address] [facility] [address] [address], [place], [place], [id number], [place] tel:[phone] [facility] No Information 3 Evelina Plascencia. [address], [place], [place], [id number] , [place]. tel:[phone] Referring Provider: Alison Ross[address], [place], [address]. tel:[phone] OFFICE/OUTPA TIENT VISIT, NEW [facility], [address], [place], [place], [id number], [place] tel:[phone] [facility]ULT [facility] PC evaluation (chief complaint)B orderline DMII (chief complaint) Other secondary cataract, bilateralHx of retinal detachmentTyp e 2 diabetes mellitus without complication, without long-term current use of insulinInsuff iciency of tear film of both eyes 3 Evelina Plascencia. [address] [facility], [place], [place], [id number] , [place]. tel:[phone] Referring Provider: Tony Nichols MD F, [address], [place], [address]. tel:[phone] Family History Family Member Type Diagnosis Age At Onset Problem No family history of Glaucom a Problem No family history of Macular degeneration Payers Payer name Insurance type Covered green party ID Authoriza tiarielle(s) Michael [id number] Social History Type Description Quantity Date Captured [...] repair, ODReferred by Dr. Nathaly Ruiz @ [facility] Borderline DMII The patient is p resent [...]
--- OUTSIDE RECORDS SUMMARY | 2025-05-12 20:36 | XMS_ITS | Clinical Summary ---
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 Gender Identity Not on file Sexual Orientation Not on file Plan of Treatment Health Maintenance Due Date Last Done Comments Hepatitis C Virus (HCV) Screening 1965 TdaP Immunization 1965 Colonoscopy 2008 Colorectal Cancer Screening 2008 Cologuard 2013 Immunochemical Fecal Occult Blood 2013 Pneumococcal Immunization (5 0+ years) (1 of 1 - PCV) 2013 Zoster Immunization (1 of 2) 2013 PSA Discussion 2018 Influenza Immunization (#1) 2024 SARS-COV-2 Immunization ( season) 2024 Respiratory Syncytial Virus (RSV) Immunization (Adult) (1 - 1-dose 75+ series) 2038 Hepatitis B Immunization Aged Out No longer eligible based on patient's age to complete this topic Meningococcal Immunization (ACWY) Aged Out No longer eligible based on patient's age to complete this topic Pneumococcal Immunization Combined Aged Out No longer eligible based on patient's age to complete this topic Rotavirus Immunization Aged Out No lo nger eligible based on patient's age to complete this topic
[2025-05-12 20:42] VITALS: BP 155/82; PULSE 85; RESP 16; TEMP 36.8; O2SAT 97
--- OUTSIDE RECORDS SUMMARY | 2025-05-12 21:53 | XMS_ITS | Clinical Summary ---
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
--- OUTSIDE RECORDS SUMMARY | 2025-05-12 21:53 | XMS_ITS | Continuity of Care Document ---
Author Organization [facility] Address [address] [place] [address] Phone Care Team Providers Care Speeder Operator Name Role Phone Temo Hoyt MD Unavailable [...] PC AFTER CATARACT LASER SURGERY OFFICE/OUTPATIENT VISIT, [facility] REFRACTION Advance Directives Directive Yes / No Effective Date File Name No Information Encounters Encounter Description Practice Location Reason(s) For Visit Diagnoses Date Provider Providers Copied on Encounter [facility], [address], [place], [place], [id number], [place] tel:[phone] [facility] No Information 3 Evelina Plascencia. [address], [place], [place], [id number] , [place]. tel:[phone] Referring Provider: Alison Ross[address], [place], [address]. tel:[phone] OFFICE/OUTPA TIENT VISIT, NEW [facility], [address], [place], [place], [id number], [place] tel:[phone] [facility]ULT [facility] PC evaluation (chief complaint)B orderline DMII (chief complaint) Other secondary cataract, bilateralHx of retinal detachmentTyp e 2 diabetes mellitus without complication, without long-term current use of insulinInsuff iciency of tear film of both eyes 3 Evelina Plascencia. [address] [facility], [place], [place], [id number] , [place]. tel:[phone] Referring Provider: Tony Nichols MD F, [address], [place], [address]. tel:[phone] Family History Family Member Type Diagnosis Age At Onset Problem No family history of Glaucom a Problem No family history of Macular degeneration Payers Payer name Insurance type Covered green party ID Authoriza tiarielle(s) Michael [id number] Social History Type Description Quantity Date Captured [...] repair, ODReferred by Dr. Nathaly Ruiz @ [facility] Borderline DMII The patient is [...]
--- NOTE | 2025-05-12 22:02 | ED_ITS ---
HPI - Extremity Injury (Lower) General Chief Complaint: Extremity Injury, Lower Stated Complaint: R foot injury Time Seen by Provider: 05/12/25 21:26 History of Present Illness HPI Narrative: Pt is a 60-year-old male who presents to the ER with complaints of RLE pain. He reports approximately one week ago he stepped over a baby gate and hit his R cheung on a piece of the gate. Pt reports the pain has been worsening every day since then. He endorses redness to the site of contact, but no bruising. Pt reports this morning he noticed bruising below his R medial ankle. He reports he went to urgent care yesterday, where they did an x-ray of his R tib/fib and had a negative x-ray. Pt endorses full range of motion in his R knee and R ankle. He denies any recent fevers, history of blood clots, or areas of broken skin. Patient endorses a history of diabetes, congestive heart failure, hyperlipidemia, and HTN. Related Data Home Medications ?Medication ?Instructions ?Recorded ?Confirmed ?Last Taken ?Type furosemide 40 mg tablet 40 mg PO QAM 11/21/20 04/19/25 05/29/23 History multivitamin (Daily Multi-Vitamin 1 tablet PO DAILY 01/31/21 04/19/25 05/29/23 History tablet) ascorbic acid (vitamin C) 1,000 mg 1 g PO DAILY 03/20/23 04/19/25 05/29/23 History capsule zinc acetate 50 mg (zinc) capsule 50 mg PO DAILY 03/20/23 04/19/25 05/29/23 History aspirin 81 mg tablet,delayed 81 mg PO DAILY 09/23/23 04/19/25 Unknown History release (Adult Aspirin Regimen) omega-3 fatty acids 1,000 mg 1,000 mg PO .COMPLEX 09/23/23 04/19/25 Unknown History capsule (Fish Oil Concentrate) Allergies Allergy/AdvReac Type Severity Reaction Status Date / Time lisinopril Allergy Intermediate Cough Verified 05/12/25 20:35 rosuvastatin (From Crestor) Allergy Intermediate Elevated CK Verified 05/12/25 20:35 tetracycline Allergy Intermediate HIVES Verified 05/12/25 20:35 semaglutide (From Ozempic) AdvReac Mild Nausea Verified 05/12/25 20:35 Review of Systems Review of Systems: All systems reviewed & are unremarkable except as noted in HPI and below PMFSH Past Medical History Medical History Atypical chest pain Elevated blood pressure reading Ear pain, left Elevated WBC count Abdominal pain Paresthesia of hand Elevated CK Elevated CK Whiplash injury Elevated ALT measurement Elevated glucose Adult BMI 39.0-39.9 kg/sq m Papilloma of oropharynx Obstructive sleep apnea Lower extremity edema Hyperlipidemia Anxiety Chest pain Obesity Surgical History Surgical History S/P cardiac cath H/O colonoscopy History of eye surgery H/O removal of cyst Dr. Norris Family History Family History Father Diabetes mellitus Gout Hypertension Mother Heart disease Arteriosclerosis of bypass graft of coronary artery Ovarian cancer Hypertension Sibling Diabetes mellitus Sleep apnea Social History Social History Smoking status: Never smoker Second hand tobacco smoke exposure: Yes Alcohol intake: never Substance use: never Substance use type: does not use Do You Feel Safe in your Home?: Yes Lack of Transportation: No Lack of Food: Never True Current Housing: I Have Housing Concerned About Future Housing: No Difficulty Paying Gas/Electric Bills: No Difficulty Paying for Meds: No Currently Unemployed: No Education: High School Diploma/GED Difficulty w/ Childcare or Family Care: No Living arrangements: with family Occupation/Education: occupation 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 HEAD: Normocephalic, atraumatic. NECK: Supple. No adenopathy, no masses. RESPIRATORY: Airway patent, respirations nonlabored. Clear to auscultation bilaterally, no rales, rhonchi, wheezing. CARDIOVASCULAR: Regular rate and rhythm without murmurs, rubs, or gallops. Peripheral pulses 2+ and equal bilaterally. ABDOMINAL: Soft, nontender, nondistended, no hepatosplenomegaly. Normoactive BS. MUSCULOSKELETAL: Moves all extremities. Strength/ROM intact without gross deformities. SKIN: Warm, dry, normal color. No rashes. Right anterior lower extremity calf redness with warmth, no open wounds, no drainage, -[place] sign NEURO: A&O X3. Speech clear. Cranial nerves II-XII intact. No ataxic movements. PSYCHIATRIC: Appropriate mood and affect. Normal interaction. Course Vital Signs Vital signs: Vital Signs Temperature 36.8 C 05/12/25 20:42 Pulse Rate 85 05/12/25 20:42 Respiratory Rate 16 05/12/25 20:42 Blood Pressure 155/82 H 05/12/25 20:42 Pulse Oximetry 97 05/12/25 20:42 Oxygen Delivery Room Air 05/12/25 20:42 Temperature 36.8 C 05/12/25 20:42 Pulse Rate 85 05/12/25 20:42 Respiratory Rate 16 05/12/25 20:42 Blood Pressure 155/82 H 05/12/25 20:42 Pulse Oximetry 97 05/12/25 20:42 Oxygen Delivery Room Air 05/12/25 20:42 MDM - Extremity Injury (Lower) MDM Narrative Medical decision making narrative: Pt is a 60-year-old male who presents to the ER with complaints of RLE pain. He reports approximately one week ago he stepped over a baby gate and hit his R cheung on a piece of the gate. Pt reports the pain has been worsening every day since then. He endorses redness to the site of contact, but no bruising. Pt reports this morning he noticed bruising below his R medial ankle. He reports he went to urgent care yesterday, where they did an x-ray of his R tib/fib and had a negative x-ray. Pt endorses full range of motion in his R knee and R ankle. He denies any recent fevers, history of blood clots, or areas of broken skin. Patient endorses a history of diabetes, congestive heart failure, hyperlipidemia, and HTN. Imaging Ordered: Right foot x-ray, right lower extremity ultrasound, right tib- fib x-ray Medications Ordered: Toradol 60mg IM Results: Pt's R tib/fib x-ray indicates Highly suggestive fracture of the proximal metaphysis of the right fibula. Clinical correlation and follow-up advised. Diagnosis: R fibula fracture Consults: orthopedics (outpatient) Patient Education/Shared MDM: Results of imaging shared with patient. He will be placed in an OGL here in the ER and advised to follow-up with orthopedic surgery outpatient. He was also advised to follow-up with his PCP. He will be discharged home with a prescription for [place]. Strict return precautions provided. Patient verbalized understanding and is in agreement with plan. Vital signs stable at time of discharge. All questions answered. Differential Diagnosis Differential diagnosis: Likely ankle sprain and strain, ankle fracture and other (Tibia fracture, fibular fracture, DVT, cellulitis) Imaging Data Attestation: I personally reviewed and interpreted this imaging study as follows: Radiologist's impression: Impressions Foot X-Ray 05/12/25 22:17 IMPRESSION: No acute osseous abnormality of the right foot. Tibia/Fibula X-Ray 05/12/25 22:20 IMPRESSION: Highly suggestive fracture of the proximal metaphysis of the right fibula. Clinical correlation and follow-up advised. Venous Doppler Study 05/12/25 22:26 IMPRESSION: Negative right lower extremity venous US. No deep vein thrombosis. Discharge Plan Discharge Clinical Impression: Closed right fibular fracture, Right leg pain Patient Disposition: Home Condition: Stable Instructions: Antibiotic Form, Leg Fracture (ED) Additional Instructions: Please return to the ER with any worsening symptoms. Follow-up with Orthopedic surgery as soon as possible. Take all medications as prescribed, including regularly scheduled medications. You may take ibuprofen and/or Tylenol for pain control. Do not take [place] and Tylenol at the same time. Patient Language: Belarusian Prescriptions: New hydrocodone-acetaminophen 5-325 mg tablet 1 tablet PO Q6H PRN (Reason: pain) Qty: 10 0RF No Action furosemide 40 mg tablet 40 mg PO QAM zinc acetate 50 mg (zinc) capsule 50 mg PO DAILY ascorbic acid (vitamin C) 1,000 mg capsule 1 g PO DAILY aspirin [Adult Aspirin Regimen] 81 mg tablet,delayed release (DR/EC) 81 mg PO DAILY losartan 100 mg tablet 100 mg PO QPM Qty: 90 3RF multivitamin [Daily Multi-Vitamin] Tablet 1 tablet PO DAILY omega-3 fatty acids [Fish Oil Concentrate] 1,000 mg capsule 1,000 mg PO .COMPLEX Rx Instructions: 1,000 mg orally TID; ezetimibe [Zetia] 10 mg tablet 10 mg PO DAILY Qty: 90 0RF metformin 500 mg tablet extended release 24 hr 2,000 mg PO QPM Qty: 120 3RF Follow-up/Referrals: Tony Nichols MD [Primary Care Provider] - [place] Abernathy MD [Physician] - (orthopedic surgery) Stand Alone Forms: Work/School Release IP Time of Disposition: 23:01
[2025-05-12] MEDS: KETOROLAC (*BKC) 60 MG/2 ML VIAL IM (22:27)
== END 2025-05-12 23:37 | disposition home or self-care (01) ==
PROVIDERS: Emergency Provider Registered Nurse; PCP Family Medicine
DX: S82.401A Unspecified fracture of shaft of right fibula, initial encounter for closed fracture (principal); E11.9 Type 2 diabetes mellitus without complications; I11.0 Hypertensive heart disease with heart failure; I50.9 Heart failure, unspecified; E78.5 Hyperlipidemia, unspecified; W22.09XA Striking against other stationary object, initial encounter
CPT/HCPCS: 29515; 73590; 73630; 93971; 96372; 99284; J1885

== ENCOUNTER 2025-10-01 18:57 | Emergency (ER) | payer OTHER, SELFPAY ==
--- OUTSIDE RECORDS SUMMARY | 2023-05-24 02:40 | XMS_ITS | Continuity of Care Document ---
Author Organization [facility] Address [address] [facility] [address] [place] [address] Phone Care Team Providers Care Manager International Name Role Phone Temo Hoyt MD Unavailable Unavailable Allergies, Adverse Reactions, Alerts Substance Reaction Status Criticality tetracycline Active No Information Medications Medication Instructions Dosage Effective Dates (start - stop) Status Comments metformin 500 mg tablet take 1 tablet by oral route 2 times every day with morning and evening meals 500 MG - Active multivitamin tablet take 1 tablet by oral route every day with food - Active furosemide 40 mg tablet take 1 tablet by oral route every day 40 MG - Active ezetimibe 10 mg tablet take 1 tablet by oral route every day 10 MG - Active Vitamin C BUCCAL CAPSULE - Active zinc BUCCAL ADH. PATCH - Active losartan 100 mg tablet take 1 tablet by oral route every day 100 MG - Active fish oil (unknown strength) Not Available - Active Procedures Procedure Date YAG PC AFTER CATARACT LASER SURGERY OFFICE/OUTPATIENT VISIT, [facility] REFRACTION Advance Directives Directive Yes / No Effective Date File Name No Information Encounters Encounter Description Practice Location Reason(s) For Visit Diagnoses Date Provider Providers Copied on Encounter [facility], [address] [facility] [address], [place], [place], [id number], [place] tel:[phone] [facility] No Information 3 Evelina Plascencia. [address], [place], [place], [id number] , [place]. tel:[phone] Referring Provider: Alison Ross[address], [place], [address]. tel:[phone] OFFICE/OUTPA TIENT VISIT, NEW [facility], [address], [place], [place], [id number], [place] tel:[phone] OPH CONSULT [facility] YAG PC evaluation (chief complaint)B orderline DMII (chief complaint) Other secondary cataract, bilateralHx of retinal detachmentTyp e 2 diabetes mellitus without complication, without long-term current use of insulinInsuff iciency of tear film of both eyes 3 Evelina Plascencia. [address] [facility], [place], [place], [id number] , [place]. tel:[phone] Referring Provider: Tony Nichols MD F, [address], [place], [address]. tel:[phone] Family History Family Member Type Diagnosis Age At Onset Problem No family history of Glaucom a Problem No family history of Macular degeneration Payers Payer name Insurance type Covered republican ID Authoriza tiarielle(s) Michael [id number] Social History Type Description Quantity Date Captured Comments Sex Male Smoking Status No Information Chief Complaint And Reason For Visit No Information Reason For Referral Reason For Referral No Information History Of Present Illness Encounter Date Complaint History Of Prese nt Illness YAG PC evaluation The 58 year ol d male presents for evaluation of YAG PC evaluation; OS is worse than OD. Patient reports struggling with clouded vision in the distance; he is unable to read street signs. While driving at night, headlight glare can be problematic. OU are comfortable.OCT MAC today- h/o ERM, OS s/p repair , h/o R/D s/p repair, ODReferred by Dr. Nathaly Ruiz @ [facility] Borderline DMII The patient is p resent for evaluation of Borderline DMII . Last A1c was 8.1, taken about 6 months ago. BS is not checked at home. Patient is not on insulin.DMII managed by a Nurse Practitioner at Dr. 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
--- OUTSIDE RECORDS SUMMARY | 2023-05-24 02:40 | XMS_ITS | Continuity of Care Document ---
Author Organization [facility] Address [address] [facility] [address] [place] [address] Phone Care Team Providers Care Electrical Assembler Name Role Phone Temo Hoyt MD Unavailable [...] PC AFTER CATARACT LASER SURGERY OFFICE/OUTPATIENT VISIT, [facility] REFRACTION Advance Directives Directive Yes / No Effective Date File Name No Information Encounters Encounter Description Practice Location Reason(s) For Visit Diagnoses Date Provider Providers Copied on Encounter [facility], [address] [address] [address], [place], [place], [id number], [place] tel:[phone] [facility] No Information 3 Evelina Plascencia. [address], [place], [place], [id number] , [place]. tel:[phone] Referring Provider: Alison Ross[address], [place], [address]. tel:[phone] OFFICE/OUTPA TIENT VISIT, NEW [facility], [address] [facility] [address], [place], [place], [id number], [place] tel:[phone] OPH CONSULT [facility] YAG PC evaluation (chief complaint)B orderline DMII (chief complaint) Other secondary cataract, bilateralHx of retinal detachmentTyp e 2 diabetes mellitus without complication, without long-term current use of insulinInsuff iciency of tear film of both eyes 3 Evelina Plascencia. [address] [facility], [place], [place], [id number] , [place]. tel:[phone] Referring Provider: Tony Nichols MD F, [address], [place], [address]. tel:[phone] Family History Family Member Type Diagnosis Age At Onset Problem No family history of Glaucom a Problem No family history of Macular degeneration Payers Payer name Insurance type Covered alliance party ID Authoriza tiarielle(s) Michael [id number] Social History Type Description Quantity Date Captured [...] repair, ODReferred by Dr. Nathaly Ruiz @ [facility] Borderline DMII The patient is p resent [...]
--- NOTE | ~2025-10-01 | CT_ITS ---
CT abdomen pelvis w con INDICATION:lower abd pain, diabetic . COMPARISON: None. TECHNIQUE: Axial images of the abdomen and pelvis were obtained following infusion of 100 mL Isovue 300. Dose optimization technique was utilized. FINDINGS: The lung bases are clear. Fatty infiltration of the liver is noted. No intrahepatic mass or ductal dilatation is evident. Cholelithiasis is noted. There is no pericholecystic fluid. The pancreas and spleen are normal in appearance. The adrenal glands are symmetric in size. The kidneys demonstrate symmetric uptake and excretion of contrast. No cystic mass is evident. There is no solid mass. There is no hydronephrosis. Evaluation of the stomach and bowel loops are limited due to lack of oral contrast. There are no evidence of acute appendicitis or bowel obstruction. The bladder and rectum are normal. The prostate is normal in size. No free intraperitoneal fluid or air is evident. There is no significant retroperitoneal lymphadenopathy. The aorta, visceral vessels and renal arteries demonstrate normal caliber and patency. The lower thoracic and lumbar vertebrae are in normal alignment. IMPRESSION: Cholelithiasis without evidence of acute cholecystitis. Hepatic steatosis. All CT scans at this facility are performed using low dose modulation techniques as appropriate to perform exam including the following: automated exposure control; use of iterative reconstruction technique; adjustment of the mA and/or kV according to patient size (this includes techniques or standardized protocols for targeted exams where dose is matched to indication/reason for exam). Reviewed, dictated and finalized at location S. IMPRESSION: Cholelithiasis without evidence of acute cholecystitis. Hepatic steatosis. All CT scans at this facility are performed using low dose modulation techniqu es as appropriate to perform exam including the following: automated exposure c ontrol; use of iterative reconstruction technique; adjustment of the mA and/or kV according to patient size (this includes techniques or standardized protocol s for targeted exams where dose is matched to indication/reason for exam).
[2025-10-01 18:58] VITALS: BP 158/74; PULSE 87; RESP 18; TEMP 36.6; O2SAT 97
--- OUTSIDE RECORDS SUMMARY | 2025-10-01 18:59 | XMS_ITS | Clinical Summary ---
Author Organization [facility] Address [address] [place] [id number] Care Team Providers Care Optical Glass Inspector Name Role Phone Tony Nichols MD Primary Care Provider [phone] Allergies Active Allergy Reactions Criticality Noted Date [...] mouth once daily 30 tablet 4 Active ezetimibe (ZETIA) 10 mg tablet 5 Active furosemide (LASIX) 40 mg tabletIndicatio ns:Bilateral lower extremity edema Take 1 tablet by mouth once daily 90 tablet 1 5 Active Active Problems Problem Noted Date Diagnosed Date Coronary artery disease invo lving osage coronary artery of osage heart 12/17/2023 Left arm numbness 08/14/2023 Palpitations 08/14/2023 Essential hypertension 11/02/2021 Pulmonary hypertension 08/30/2021 PND (paroxysmal nocturnal dyspnea) 10/19/2020 Hypersomnolence 10/19/2020 Excessive daytime sleepiness 10/19/2020 Pulmonary hyperinflation 10/19/2020 Gastroesophageal reflux disease without esophagi tis 01/29/2020 Morbid (severe) obesity due to excess calories 0 01/29/2020 Atypical chest pain 01/29/2020 Hyperlipidemia LDL goal <100 01/29/2020 Bilateral lower extremity edema 01/29/2020 CRISTINA treated with BiPAP 01/29/2020 Surgical History Surgery Date Site/Laterality Comments CARDIAC [...] on file 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 Gender Identity Not on file Sexual Orientation Not on file Obstetrics History Last Filed Vital Signs Vital Sign Reading Time Taken Comments Blood Pressure 138/74 02/18/2025 4:08 PM CDT Pulse 87 02/18/2025 3:38 PM CDT Temperature 36.8 C (98.3 F) 01/16/2024 6:46 AM DEXTRINE MIXER Respiratory Rate 20 01/16/2024 6:46 AM DEXTRINE MIXER Oxygen Saturation 96% 02/18/2025 3:38 PM CDT [...] (1 of 2) 2013 Covid-19 Vaccine ( season) 2025 08/05/2021, 07/12/2021 Influenza Vaccine (#1) 2025 , 09/15/2020, 09/23/2019, Additional history exists Pneumococcal vaccine <65 Aged Out No longer eligible based on patient's age to complete this topic Medical Devices Implanted Type Area Email Campaign Manager Device Identifier Shelf Expiration Date Model / Serial / Lot [employer] Device Closure Vascade Od5 Fr Femoral Artery [id number] - [id number] Implanted:Qty: 1 on 01/16/2024 by Wei Kruger MD at [facility] [employer] [facility] [id number] / / Insurance [employer] [facility] H[facility]/PPO Address: [facility] [address] [place] [address] [facility] PL[facility] Care Teams Optical Glass Inspector Relationship Specialty Start Date End Date Tony Nichols MD PCP - General Family Medicine 11/30/20
[2025-10-01 19:14] LABS: Hematocrit 39.9 % (42.0-52.0); Hemoglobin 13.4 g/dL (14.0-18.0); Immature Granulocyte Percent A 0.2 % (0-0.5); Lymphocytes Absolute Auto 3.63 K/mm3 (0.9-3.2); Mean Corpuscular HGB Conc 33.6 g/dl (32-36); Mean Corpuscular Hemoglobin 30.8 pg (26-34); Mean Corpuscular Volume 91.7 fl (80-100); Nucleated Red Blood Cells Absolute Auto 0.000 K/mm3 (0.0-0.012); Nucleated Red Blood Cells Perc 0.0 % (0.0-0.2); Platelet Count Result 222 k/mm3 (150-375); Red Blood Count 4.35 M/mm3 (4.6-6.20); White Blood Count 9.8 K/mm3 (4.5-10.0)
[2025-10-01 19:26] LABS: Add Urine Microscopic? NO; Appearance Urine Clear (Clear); Glucose Urine UA 3+ mg/dL (Negative); Leukocyte Esterase Ur Negative LEU/UL (Negative); Nitrate Urine Negative (Negative); Specific Grav Ur 1.036 (1.001-1.035)
[2025-10-01 19:36] LABS: Alanine Aminotransferase 76 U/L (6-50); Albumin Level 4.9 g/dL (3.5-5.1); Alkaline Phosphatase 113 U/L (38-126); Anion Gap 9 mmol/L (4-12); Aspartate Amino Transferase 57 U/L (17-59); Bilirubin,Total 0.5 mg/dL (0.2-1.3); Blood Urea Nitrogen 20 mg/dL (9-20); Calcium 9.5 mg/dL (8.4-10.2); Carbon Dioxide 25 mmol/L (22-30); Chloride 103 mmol/L (98-107); Estimated CRCL calculation 111 ml/min; Estimated Glomerular Filt Rate > 60; Glucose 207 mg/dL (65-110); Lipase 160 U/L (23-300); Potassium 3.9 mmol/L (3.4-5.0); Sodium 137 mmol/L (137-145); Total Protein 8.1 g/dL (6.3-8.2)
--- NOTE | 2025-10-01 20:14 | ED.ABDPAIN ---
HPI - Abdominal Pain General Chief Complaint: Abdominal Pain Stated Complaint: abdominal cramps for 1 month Time Seen by Provider: 10/01/25 20:06 History of Present Illness HPI narrative: 60-year-old male with history of diabetes presenting to the emergency department with lower abdominal cramping for about 1 month associated with some intermittent dysuria. States that the symptoms are intermittent in nature but has been progressively worsening and more constant in quality. States that occasionally he gets urinary difficulties but has no history of prostate enlargement or prostatitis. No discharge or blood. Rates his pain 5/10 and cramping in quality is bilateral lower quadrant sometimes on the right side and sometimes on the left side. No traumatic injuries. No abdominal surgical history. Was otherwise in his normal state of health. Denies any other symptoms such as fever, chills, back pain, nausea vomiting, chest pain, shortness of breath. Related Data Home Medications ?Medication ?Instructions ?Recorded ?Confirmed ?Last Taken ?Type furosemide 40 mg tablet 40 mg PO QAM 11/21/20 07/29/25 05/29/23 History multivitamin (Daily Multi-Vitamin 1 tablet PO DAILY 01/31/21 07/29/25 05/29/23 History tablet) ascorbic acid (vitamin C) 1,000 mg 1 g PO DAILY 03/20/23 07/29/25 05/29/23 History capsule zinc acetate 50 mg (zinc) capsule 50 mg PO DAILY 03/20/23 07/29/25 05/29/23 History aspirin 81 mg tablet,delayed 81 mg PO DAILY 09/23/23 07/29/25 Unknown History release (Adult Aspirin Regimen) omega-3 fatty acids 1,000 mg 1,000 mg PO .COMPLEX 09/23/23 07/29/25 Unknown History capsule (Fish Oil Concentrate) Allergies Allergy/AdvReac Type Severity Reaction Status Date / Time lisinopril Allergy Intermediate Cough Verified 10/01/25 19:01 rosuvastatin (From Crestor) Allergy Intermediate Elevated CK Verified 10/01/25 19:01 tetracycline Allergy Intermediate HIVES Verified 10/01/25 19:01 semaglutide (From Ozempic) AdvReac Mild Nausea Verified 10/01/25 19:01 Review of Systems Review of Systems: As reviewed above in HPI PMFSH Past Medical History Medical History Atypical chest pain Elevated blood pressure reading Ear pain, left Elevated WBC count Abdominal pain Paresthesia of hand Elevated CK Elevated CK Whiplash injury Elevated ALT measurement Elevated glucose Adult BMI 39.0-39.9 kg/sq m Papilloma of oropharynx Obstructive sleep apnea Lower extremity edema Hyperlipidemia Anxiety Chest pain Obesity Surgical History Surgical History S/P cardiac cath H/O colonoscopy History of eye surgery H/O removal of cyst Dr. Norris Family History Family History Father Diabetes mellitus Gout Hypertension Mother Heart disease Arteriosclerosis of bypass graft of coronary artery Ovarian cancer Hypertension Sibling Diabetes mellitus Sleep apnea Social History Social History Smoking status: Never smoker Second hand tobacco smoke exposure: Yes Alcohol intake: never Substance use: never Substance use type: does not use Do You Feel Safe in your Home?: Yes Lack of Transportation: No Lack of Food: Never True Current Housing: I Have Housing Concerned About Future Housing: No Difficulty Paying Gas/Electric Bills: No Difficulty Paying for Meds: No Currently Unemployed: No Education: High School Diploma/GED Difficulty w/ Childcare or Family Care: No Living arrangements: with family Occupation/Education: occupation Additional occupation/education comments: [employer]- [employer] Gender identity (if verbalized by the patient): Male Spiritual care concerns: No Exam Narrative: GENERAL: [Well-appearing, well-nourished, and in no acute distress.] HEAD: [Normocephalic, atraumatic.] EYES: [PERRLA and EOMI.] ENT: Nares clear, no rhinorrhea or epistaxis. Mucous membranes moist. NECK: Supple. CHEST: [Clear to auscultation. No respiratory distress.] HEART: [Regular rate and rhythm]. No murmur heard. [Normal peripheral pulses.] ABDOMEN: [Soft, nondistended], [nontender], [No rigidity or guarding] EXTREMITIES: Normal range of motion. [No edema.] SKIN: Warm, dry, no rash. NEURO: [No focal deficits]. Alert and oriented [x3.] PSYCH: [Normal mood and affect.] Course Vital Signs Vital signs: Vital Signs Temperature 36.6 C 10/01/25 18:58 Pulse Rate 87 10/01/25 18:58 Respiratory Rate 18 10/01/25 18:58 Blood Pressure 158/74 H 10/01/25 18:58 Pulse Oximetry 97 10/01/25 18:58 Oxygen Delivery Room Air 10/01/25 18:58 Temperature 36.6 C 10/01/25 18:58 Pulse Rate 73 10/01/25 20:42 Respiratory Rate 16 10/01/25 20:42 Blood Pressure 141/68 H 10/01/25 20:42 Pulse Oximetry 97 10/01/25 20:42 Oxygen Delivery Room Air 10/01/25 18:58 MDM - Abdominal Pain MDM Narrative Medical decision making narrative: 60-year-old male with history of diabetes presenting to the emergency department with lower abdominal cramping for about 1 month associated with some intermittent dysuria. States that the symptoms are intermittent in nature but has been progressively worsening and more constant in quality. States that occasionally he gets urinary difficulties but has no history of prostate enlargement or prostatitis. No discharge or blood. Rates his pain 5/10 and cramping in quality is bilateral lower quadrant sometimes on the right side and sometimes on the left side. No traumatic injuries. No abdominal surgical history. Was otherwise in his normal state of health. Denies any other symptoms such as fever, chills, back pain, nausea vomiting, chest pain, shortness of breath. Patient has a soft nontender nondistended abdomen. No flank pain. Hemodynamically stable without any tachycardia, fever, hypoxemia or significant blood pressure elevations. Abdominal cramping going on for 1 month. Suspicious for gastroenteritis, gastritis, gastroparesis as he is a diabetic on Jardiance, urinary tract infection, kidney stones, less likely intra-abdominal abscess or infection. Workup underway including urinalysis, CBC, CMP, lipase, CT scan with contrast. Labs are reassuring. No leukocytosis or anemia. Normal platelet count. Electrolytes are normal. Renal function is normal. Glucose is around his baseline slightly elevated. Normal LFTs from baseline. Negative lipase. Urinalysis without any signs of infection or blood. CT scan shows cholelithiasis without acute coli which is already aware of and has a GI follow-up for. Some hepatic steatosis also seen but no other acute intra-abdominal process. Patient did endorse that he started Jardiance about a month ago similar to the timeline of onset of symptoms this could be a medication side effect or abdominal cramping related to this. Given a dose of Bentyl and Toradol and will be discharged with Bentyl as needed and follow up with his PCP and GI doctor which he already has appointments upcoming. Patient given return precautions and safe for discharge. Medical Records Attestation: I reviewed the patient's medical records. Lab Data Attestation: I reviewed the patient's lab results. 10/01/25 19:03 10/01/25 19:03 Labs: Lab Results 10/01/25 10/01/25 Range/Units 19:03 19:17 WBC 9.8 (4.5-10.0) K/mm3 RBC 4.35 L (4.6-6.20) M/mm3 Hgb 13.4 L (14.0-18.0) g/dL Hct 39.9 L (42.0-52.0) % MCV 91.7 (80-100) fl MCH 30.8 (26-34) pg MCHC 33.6 (32-36) g/dl RDW 12.8 (11.5-14.5) % Plt Count 222 (150-375) k/mm3 MPV 10.1 (7.4-10.4) fl Immature Gran % (Auto) 0.2 (0-0.5) % Neut % (Auto) 49.5 (45.5-73.1) % Lymph % (Auto) 37.1 (18.3-44.2) % [place] % (Auto) 7.9 (2.6-8.5) % Eos % (Auto) 4.5 H (0-4.4) % Baso % (Auto) 0.8 (0.2-1.2) % Lymph # (Auto) 3.63 H (0.9-3.2) K/mm3 [place] # (Auto) 0.8 H (0.1-0.6) K/mm3 Eos # (Auto) 0.4 H (0-0.3) K/mm3 Baso # (Auto) 0.1 (0.0-0.1) K/mm3 Abs Immat Gran (auto) 0.02 (0.00-0.031) K/mm3 Absolute Neuts (auto) 4.8 (1.3-6.7) K/mm3 Absolute Nucleated RBC 0.000 (0.0-0.012) K/mm3 Nucleated RBC % 0.0 (0.0-0.2) % Sodium 137 (137-145) mmol/L Potassium 3.9 (3.4-5.0) mmol/L Chloride 103 (98-107) mmol/L Carbon Dioxide 25 (22-30) mmol/L Anion Gap 9 (4-12) mmol/L BUN 20 (9-20) mg/dL Creatinine 0.86 (0.7-1.3) mg/dL Estim Creat Clear Calc 111 ml/min Estimated GFR > 60 (59 - ) Glucose 207 H (65-110) mg/dL Calcium 9.5 (8.4-10.2) mg/dL Total Bilirubin 0.5 (0.2-1.3) mg/dL AST 57 (17-59) U/L ALT 76 H (6-50) U/L Alkaline Phosphatase 113 (38-126) U/L Total Protein 8.1 (6.3-8.2) g/dL Albumin 4.9 (3.5-5.1) g/dL Lipase 160 (23-300) U/L Urine Color Yellow (Yellow) Urine Appearance Clear (Clear) Urine pH 5.5 (5.0-9.0) Ur Specific [place] 1.036 H (1.001-1.035) Urine Protein Negative (Negative) mg/dL Urine Glucose (UA) 3+ H (Negative) mg/dL Urine Ketones Negative (Negative) mg/dL Ur Blood (Man) Negative (Negative) Urine Nitrate Negative (Negative) Urine Bilirubin Negative (Negative) Urine Urobilinogen 0.2 (<2.0) mg/dL Leukocyte Esterase Rfl Negative (Negative) ZACARIAS/UL Imaging Data Attestation: I personally reviewed and interpreted this imaging study as follows: My impression: Impressions Abdomen/Pelvis CT 10/01/25 20:31 IMPRESSION: Cholelithiasis without evidence of acute cholecystitis. Hepatic steatosis. All CT scans at this facility are performed using low dose modulation techniques as appropriate to perform exam including the following: automated exposure control; use of iterative reconstruction technique; adjustment of the mA and/or kV according to patient size (this includes techniques or standardized protocols for targeted exams where dose is matched to indication/reason for exam). Radiologist's impression: ITS Impressions Abdomen/Pelvis CT 10/01/25 20:31 IMPRESSION: Cholelithiasis without evidence of acute cholecystitis. Hepatic steatosis. All CT scans at this facility are performed using low dose modulation techniques as appropriate to perform exam including the following: automated exposure control; use of iterative reconstruction technique; adjustment of the mA and/or kV according to patient size (this includes techniques or standardized protocols for targeted exams where dose is matched to indication/reason for exam). Discharge Plan Discharge Clinical Impression: Abdominal cramping, Cholelithiasis, Fatty liver Patient Disposition: Home Condition: Stable Instructions: Antibiotic Form, Abdominal Pain (ED) Additional Instructions: CT scan shows no acute urgent or emergent concerns or any explanation for your abdominal cramping, laboratory studies are all stable and reassuring. You already know about the gallstones which are not causing any issues presently. Symptoms could be related to recent starting of Jardiance as it is known to have vague and unpredictable GI side effects. We have given a prescription for Bentyl which can help with abdominal cramping as needed and you need to follow-up with your primary care provider and GI specialist next month. Return with any new or emergent concerns. Patient Language: Telugu Prescriptions: New dicyclomine 20 mg tablet 20 mg PO TID PRN (Reason: abdominal pain) Qty: 20 0RF No Action furosemide 40 mg tablet 40 mg PO QAM zinc acetate 50 mg (zinc) capsule 50 mg PO DAILY ascorbic acid (vitamin C) 1,000 mg capsule 1 g PO DAILY aspirin [Adult Aspirin Regimen] 81 mg tablet,delayed release (DR/EC) 81 mg PO DAILY multivitamin [Daily Multi-Vitamin] Tablet 1 tablet PO DAILY omega-3 fatty acids [Fish Oil Concentrate] 1,000 mg capsule 1,000 mg PO .COMPLEX Rx Instructions: 1,000 mg orally TID; Jardiance 25 mg tablet 25 mg PO DAILY Qty: 90 0RF (DME) Contour Next Test Strips Strip See Rx Instructions .Route Qty: 100 0RF Rx Instructions: As directed BId check glucose for diabetes (DME) blood-glucose meter [Contour Next Glucose Meter] Kit See Rx Instructions .Route Qty: 1 0RF Rx Instructions: As directed Check BID glucose losartan 100 mg tablet 100 mg PO QPM Qty: 90 3RF metformin 500 mg tablet extended release 24 hr 2,000 mg PO QPM Qty: 120 3RF Zoryve 0.15 % cream 1 applic topical DAILY Qty: 60 0RF (DME) lancets [Microlet Lancet] Misc See Rx Instructions .ROUTE .COMPLEX Qty: 100 0RF Dose Instruction: USE DIRECTED TWICE DAILY Rx Instructions: USE DIRECTED TWICE DAILY ezetimibe [Zetia] 10 mg tablet 10 mg PO DAILY Qty: 90 0RF Follow-up/Referrals: Tony Nichols MD [Primary Care Provider, Family Practice] Time of Disposition: 20:53
[2025-10-01 20:42] VITALS: BP 141/68; PULSE 73; RESP 16; O2SAT 97
--- OUTSIDE RECORDS SUMMARY | 2025-10-01 20:43 | XMS_ITS | Clinical Summary ---
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 Gender Identity Not on file Sexual Orientation Not on file Obstetrics History Last Filed Vital Signs Vital Sign Reading Time Taken Comments Blood Pressure 138/74 02/18/2025 4:08 PM CDT Pulse 87 02/18/2025 3:38 PM CDT Temperature 36.8 C (98.3 F) 01/16/2024 6:46 AM 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 [id number] / / Insurance [employer] OPEN ACCESS [facility] CHOICE PLUS Care Teams Physician Recruiter Relationship Specialty Start Date End Date Tony Nichols MD PCP - General Family Medicine 11/30/20
--- OUTSIDE RECORDS SUMMARY | 2025-10-01 20:43 | XMS_ITS | Clinical Summary ---
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 Gender Identity Not on file Sexual Orientation Not on file Plan of Treatment Health Maintenance Due Date Last Done Comments Hepatitis C Virus (HCV) Screening 1965 TdaP Immunization 1965 Cologuard 2008 Colonoscopy 2008 Colorectal Cancer Screening 2008 Immunochemical Fecal Occult Blood 2008 Pneumococcal Immunization (5 0+ years) (1 of 1 - PCV) 2013 Zoster Immunization (1 of 2) 2013 Influenza Immunization (#1) 2025 SARS-COV-2 Immunization ( season) 2025 Respiratory Syncytial Virus (RSV) Immunization (Adult) (1 - 1-dose 75+ series) 2038 Hepatitis B Immunization Aged Out No longer eligible based on patient's age to complete this topic Human Papillomavirus (HPV) Immunization Aged Out No longer eligible b ased on patient's age to complete this topic Meningococcal Immunization (ACWY) Aged Out No longer eligible based on patient's age to complete this topic Rotavirus Immunization Aged Out No lo nger eligible based on patient's age to complete this topic
[2025-10-01] MEDS: DICYCLOMINE HCL 10 MG CAPSULE 20 MG PO (21:05)
[2025-10-01] MEDS: KETOROLAC 15 MG/ML VIAL (*BKC) IV PUSH (21:05)
== END 2025-10-01 21:15 | disposition home or self-care (01) ==
PROVIDERS: Student in an Organized Health Care Education/Training Program; Emergency Provider Student in an Organized Health Care Education/Training Program; PCP Family Medicine
DX: R10.30 Lower abdominal pain, unspecified (principal); K80.20 Calculus of gallbladder without cholecystitis without obstruction; K76.0 Fatty (change of) liver, not elsewhere classified; E11.9 Type 2 diabetes mellitus without complications; E78.5 Hyperlipidemia, unspecified; E66.9 Obesity, unspecified; Z68.38 Body mass index [BMI] 38.0-38.9, adult; G47.33 Obstructive sleep apnea (adult) (pediatric); Z77.22 Contact with and (suspected) exposure to environmental tobacco smoke (acute) (chronic); Z79.84 Long term (current) use of oral hypoglycemic drugs; Z79.82 Long term (current) use of aspirin; Z79.899 Other long term (current) drug therapy
CPT/HCPCS: 36415; 74177; 80053; 81003; 83690; 85025; 96374; 99284; A9270; J1885; Q9967